=== PATIENT | female | born 1945 | race African-American/Black ===

== ENCOUNTER 2018-04-14 15:17 | Inpatient (IN) | payer OTHER ==
[~2018-04-14] VITALS: Ht 154.9 cm; Wt 63.5 kg
[~2018-04-14 15:17] MED LIST: ATOR20TA50 PO; CARB25TA3 PO; DIPH25TA PO; FURO20TA3 PO; GABA-339 PO; LISI10TA6 PO; METO-159 PO; MONT10TA34 PO; OMEP20TA PO
[2018-04-14] MEDS ORDERED: LEVOFLOXACIN 500MG 100 ML IV ONE (16:30)
[2018-04-14 16:37] LABS: Basophils # (auto) 0.1 uL; Basophils % (auto) 1.3 % (0.0-2.0); Eosinophils # (auto) 0 uL; Eosinophils % (auto) 0.4 % (0.0-7.0); Hematocrit 36.5 % (36.0-46.0); Hemoglobin 11.7 g/dL (12.2-16.2); Lymphocytes # (auto) 2.3 uL; Mean Corpuscular Hemoglobin 27.7 pg (28.0-32.0); Mean Corpuscular Hgb Conc. 32.1 g/dL (32.0-36.0); Mean Corpuscular Volume 86.4 fL (80.0-100.0); Monocytes # (auto) 0.5 uL; Monocytes % (auto) 8.8 % (0.0-12.0); Neutrophils # (auto) 2.6 uL; Neutrophils % (auto) 47.5 % (37.0-80.0); Nucleated Red Blood Cells % 0.1 %; Platelet Count (auto) 186 10^3/uL (140-450); Red Blood Cells 4.22 10^6/uL (4.0-5.20); Red Cell Distribution Width 12.7 % (11.8-14.3); White Blood Cell 5.4 10^3/uL (4.4-10.8)
[2018-04-14 16:39] LABS: Urine Bacteria NONE SEEN /hpf (None Seen); Urine Blood Negative /uL (Negative); Urine Specific Gravity 1.007 (1.001-1.035); Urine WBC 3 /hpf (0 - 5)
[2018-04-14 16:55] LABS: Albumin 3.4 g/dL (3.4-5.0); Calcium 8.7 mg/dL (8.5-10.1); Magnesium 2.1 mg/dL (1.6-2.6); Potassium 4.2 mmol/L (3.5-5.1)
[2018-04-14 16:59] LABS: BUN/Creatinine Ratio 11.1; Bilirubin, Total 0.4 mg/dL (0.2-1.0); Total Protein 8.1 g/dL (6.4-8.2)
[2018-04-14] MEDS ORDERED: FUROSEMIDE 40 MG/4 ML VIAL IV ONE (17:45)
[2018-04-14] MEDS ORDERED: DOCUSATE SOD 100 MG CAP PO PRN (19:00)
[2018-04-14] MEDS ORDERED: ONDANSETRON HCL 4 MG/2 ML VIAL IV PRN (19:00)
[2018-04-14] MEDS ORDERED: ACETAMINOPHEN 325 MG TAB PO PRN (19:00)
[2018-04-14] MEDS ORDERED: TEMAZEPAM 15 MG CAP PO PRN (19:00)
[2018-04-14] MEDS ORDERED: diphenhdrAMINE HCL 25 MG CAP PO PRN ×2 (19:00)
[2018-04-14] MEDS ORDERED: MORPHINE SULFATE 10 MG/ML INJ 1ML SDV IV PRN ×2 (19:00)
[2018-04-14] MEDS ORDERED: HYDROcodone-ACET 5/325MG TAB PO PRN (19:00)
[2018-04-14] MEDS ORDERED: NITROGLYCERIN 0.4 MG SL TAB SL PRN (19:00)
[2018-04-14] MEDS ORDERED: ENOXAPARIN SOD 40 MG/0.4 ML SYRINGE SC SCH (19:08)
[2018-04-14 19:36] VITALS: BP 153/89
[2018-04-14 22:00] VITALS: BP 131/63
[2018-04-14] MEDS ORDERED: MONTELUKAST SODIUM 10 MG TAB PO SCH (22:00)
[2018-04-14] MEDS ORDERED: ATORVASTATIN 20 MG TAB PO SCH (22:00)
[2018-04-14 23:00] VITALS: BP 131/63
[2018-04-14] MEDS: SODIUM CHLOR 0.9% PF (SALINE LOCK) 10ML VIAL/SYR IV SCH (23:04)
[2018-04-14] MEDS: GABAPENTIN 400 MG CAP PO SCH (23:04)
[2018-04-14] MEDS: CARBIDOPA W LEVODOPA 25/100mg TABLET PO SCH (23:04)
[2018-04-14] MEDS: METOPROLOL TARTRATE 50 MG TAB PO SCH (23:08)
[2018-04-15 05:00] VITALS: BP 134/62
[2018-04-15] MEDS: GABAPENTIN 400 MG CAP PO SCH (06:12)
[2018-04-15] MEDS: SODIUM CHLOR 0.9% PF (SALINE LOCK) 10ML VIAL/SYR IV SCH ×2 (06:12→14:16)
[2018-04-15 06:37] LABS: Potassium 3.7 mmol/L (3.5-5.1)
[2018-04-15 06:39] LABS: Basophils # (auto) 0 uL; Basophils % (auto) 0.4 % (0.0-2.0); Eosinophils # (auto) 0 uL; Eosinophils % (auto) 0.7 % (0.0-7.0); Hematocrit 35.7 % (36.0-46.0); Hemoglobin 11.8 g/dL (12.2-16.2); Lymphocytes # (auto) 2.5 uL; Lymphocytes % (auto) 46.9 % (10.0-50.0); Mean Corpuscular Hemoglobin 28.5 pg (28.0-32.0); Mean Corpuscular Volume 86.4 fL (80.0-100.0); Monocytes # (auto) 0.5 uL; Monocytes % (auto) 9.9 % (0.0-12.0); Neutrophils # (auto) 2.2 uL; Neutrophils % (auto) 42.1 % (37.0-80.0); Nucleated Red Blood Cells % 0.1 %; Platelet Count (auto) 174 10^3/uL (140-450); Red Blood Cells 4.13 10^6/uL (4.0-5.20); Red Cell Distribution Width 12.7 % (11.8-14.3); White Blood Cell 5.2 10^3/uL (4.4-10.8)
[2018-04-15] MEDS: ALBUTEROL SULF 2.5 MG/0.5ML(0.5%) NEB SOLN NEB SCH ×3 (06:45→12:03)
[2018-04-15 06:52] LABS: Albumin 3.4 g/dL (3.4-5.0); BUN/Creatinine Ratio 10.9; Bilirubin, Total 0.7 mg/dL (0.2-1.0); Calcium 8.9 mg/dL (8.5-10.1); Total Protein 7.9 g/dL (6.4-8.2)
[2018-04-15 08:00] VITALS: BP 112/59
[2018-04-15 09:00] VITALS: BP 112/59
[2018-04-15] MEDS: METOPROLOL TARTRATE 50 MG TAB PO SCH (09:30)
[2018-04-15] MEDS ORDERED: FUROSEMIDE 40 MG/4 ML VIAL IV SCH (10:00)
[2018-04-15] MEDS ORDERED: PANTOPRAZOLE 40 MG TAB PO SCH (10:00)
[2018-04-15] MEDS ORDERED: POTASSIUM CHLORIDE 8 MEQ TAB PO SCH (10:00)
[2018-04-15] MEDS ORDERED: MULTIPLE VITAMIN TAB PO SCH (10:00)
[2018-04-15] MEDS ORDERED: LISINOPRIL 10 MG TAB PO SCH (10:00)
[2018-04-15] MEDS ORDERED: ENOXAPARIN SOD 30 MG/0.3 ML SYRINGE SC SCH (10:00)
[2018-04-15] MEDS ORDERED: ASPirin-EC 81 mg tab PO SCH (10:00)
[2018-04-15] MEDS: CARBIDOPA W LEVODOPA 25/100mg TABLET PO SCH (10:00)
[2018-04-15] MEDS ORDERED: AMIODARONE HCL 200 MG TAB PO SCH (10:00)
[2018-04-15] MEDS ORDERED: POTASSIUM CHL 20 Meq TABLET PO ONE (10:30)
[2018-04-15 13:00] VITALS: BP 116/55
[2018-04-15] MEDS ORDERED: GABAPENTIN 400 MG CAP PO SCH (14:00)
[2018-04-15] MEDS ORDERED: CARBIDOPA W LEVODOPA 25/100mg TABLET PO SCH (14:00)
[2018-04-15] MEDS ORDERED: GABAPENTIN 300 MG CAP PO SCH (14:15)
[2018-04-15 17:00] VITALS: BP 139/68
== END 2018-04-15 18:20 | disposition home or self-care (01) | DRG 291 ==
LOC: ER 15:17 → TELE 19:07 → TELE-EAST 21:24
PROVIDERS: ADMIT Internal Medicine; ATTEND Family Medicine
DX: I13.0 Hypertensive heart and chronic kidney disease with heart failure and stage 1 through stage 4 chronic kidney disease, or unspecified chronic kidney disease (principal); I50.43 Acute on chronic combined systolic (congestive) and diastolic (congestive) heart failure; I48.92 Unspecified atrial flutter; D68.69 Other thrombophilia; E78.5 Hyperlipidemia, unspecified; G20 Parkinson's disease; I25.10 Atherosclerotic heart disease of native coronary artery without angina pectoris; I25.2 Old myocardial infarction; I48.0 Paroxysmal atrial fibrillation; N18.3 Chronic kidney disease, stage 3 (moderate); Z95.810 Presence of automatic (implantable) cardiac defibrillator; Z90.49 Acquired absence of other specified parts of digestive tract; Z98.51 Tubal ligation status; Z90.89 Acquired absence of other organs
CPT/HCPCS: 36415; 71045; 80053; 81001; 83605; 83735; 83880; 84484; 85025; 87040; 87081; 94640; 94761; 96365; 96372; 96375; G0378; J1956

== ENCOUNTER 2022-01-12 13:33 | Inpatient (IN) | payer OTHER ==
[~2022-01-12] VITALS: Ht 165.1 cm; Wt 50.5 kg
[~2022-01-12 13:33] MED LIST changes: +CARB-80 PO; -CARB25TA3 PO; +LISI-716 PO; -LISI10TA6 PO; +MONT-8 PO; -MONT10TA34 PO
[2022-01-12 14:47] LABS: Albumin 2.5 g/dL (3.4-5.0); BUN/Creatinine Ratio 10.9; Calcium 9.2 mg/dL (8.5-10.1); Magnesium 2.2 mg/dL (1.6-2.6); Potassium 4.8 mmol/L (3.5-5.1)
[2022-01-12 14:50] LABS: Bilirubin, Total 0.4 mg/dL (0.2-1.0); Total Protein 8.1 g/dL (6.4-8.2)
[2022-01-12 15:09] LABS: Hemoglobin 9.1 g/dL (12.2-16.2)
[2022-01-12 15:11] LABS: Hematocrit 29.6 % (36.0-46.0); Mean Corpuscular Hemoglobin 25.5 pg (28.0-32.0); Mean Corpuscular Hgb Conc. 30.6 g/dL (32.0-36.0); Mean Corpuscular Volume 83.2 fL (80.0-100.0); Red Blood Cells 3.56 10^6/uL (4.0-5.20); Red Cell Distribution Width 17.2 % (11.8-14.3); White Blood Cell 4.6 10^3/uL (4.4-10.8)
[2022-01-12 15:22] LABS: Band Neutrophils % (manual) 0; Blast Cells 0; Eosinophils % (manual) 0 (0-7); Metamyelocytes % 0; Myelocytes % 0; Promyelocytes % 0
[2022-01-12] MEDS ORDERED: HEPARIN DRIP/D5W 100UNITS/ML 250 ML IV SCH (16:45)
[2022-01-12] MEDS ORDERED: MORPHINE SULFATE INJ 2 MG/ml SYRG IV PRN (17:15)
[2022-01-12] MEDS ORDERED: NITROGLYCERIN 0.4 MG SL TAB SL PRN (17:15)
[2022-01-12] MEDS ORDERED: CLOPIDOGREL 300 MG TAB PO ONE (17:15)
[2022-01-12] MEDS ORDERED: HEPARIN SODIUM (PORCINE) 5000 UNITS/ML 1ML VIAL ONE (17:17)
[2022-01-12] MEDS: HEPARIN SODIUM (PORCINE) 5000 UNITS/ML 1ML VIAL IV ONE ×2 (18:49→18:59)
[2022-01-12 19:19] LABS: INR 1.13 (0.9-1.15); Partial Thromboplastin Time 30.4 sec (24.6-33.4)
[2022-01-12 20:31] LABS: Basophils % (manual) 1 (0.0-2.0); Lymphocytes % (manual) 23 (10.0-50.0); Monocytes % (manual) 10 (0-12); Reactive Lymphocytes 1
[2022-01-12 22:29] LABS: Urine Bacteria MOD /hpf (None Seen); Urine Blood 1+ /uL (Negative); Urine Budding Yeast MANY /hpf (None Seen); Urine Mucus FEW (None Seen); Urine Specific Gravity 1.021 (1.001-1.035); Urine WBC 975 /hpf (0 - 5); Urine WBC Clumps PRESENT /hpf (None Seen)
[2022-01-12] MEDS ORDERED: DOCUSATE SOD 100 MG CAP PO PRN (22:30)
[2022-01-12] MEDS ORDERED: ACETAMINOPHEN 325 MG TAB PO PRN (22:30)
[2022-01-12] MEDS ORDERED: ONDANSETRON HCL 4 MG/2 ML VIAL IV PRN (22:30)
[2022-01-13] VITALS (22 sets, daily range): BP systolic 129–168; BP diastolic 50–87
[2022-01-13 01:57] LABS: INR 1.17 (0.9-1.15)
[2022-01-13 02:07] LABS: Partial Thromboplastin Time 71.7 sec (24.6-33.4)
[2022-01-13 04:54] LABS: Basophils # (auto) 0 10 ^3/uL (0-0.2); Basophils % (auto) 0.8 % (0.0-2.0); Eosinophils # (auto) 0 10 ^3/uL (0-0.8); Eosinophils % (auto) 0.3 % (0.0-7.0); Hematocrit 28.1 % (36.0-46.0); Hemoglobin 8.5 g/dL (12.2-16.2); Lymphocytes # (auto) 1.4 10 ^3/uL (0.4-5.4); Lymphocytes % (auto) 33.3 % (10.0-50.0); Mean Corpuscular Hemoglobin 25.3 pg (28.0-32.0); Mean Corpuscular Hgb Conc. 30.3 g/dL (32.0-36.0); Mean Corpuscular Volume 83.5 fL (80.0-100.0); Monocytes # (auto) 0.4 10 ^3/uL (0-1.3); Monocytes % (auto) 9.2 % (0.0-12.0); Neutrophils # (auto) 2.3 10 ^3/uL (1.6-8.6); Neutrophils % (auto) 56.4 % (37.0-80.0); Red Blood Cells 3.37 10^6/uL (4.0-5.20); White Blood Cell 4.1 10^3/uL (4.4-10.8)
[2022-01-13 05:06] LABS: BUN/Creatinine Ratio 12.8; Calcium 9.1 mg/dL (8.5-10.1); Magnesium 2.1 mg/dL (1.6-2.6); Potassium 3.9 mmol/L (3.5-5.1)
[2022-01-13 05:18] LABS: INR 1.17 (0.9-1.15)
[2022-01-13 05:33] LABS: Partial Thromboplastin Time 82.2 sec (24.6-33.4)
[2022-01-13 10:57] LABS: INR 1.13 (0.9-1.15); Partial Thromboplastin Time 48.1 sec (24.6-33.4)
[2022-01-13] MEDS ORDERED: HEPARIN DRIP/D5W 100UNITS/ML 250 ML IV SCH (12:00)
[2022-01-13] MEDS ORDERED: CLOPIDOGREL BISULFATE 75 MG TAB PO ONE (12:15)
[2022-01-13] MEDS ORDERED: hydrALAZINE HCL 20 MG/ML VL IV PRN (12:30)
[2022-01-13] MEDS: METOPROLOL TARTRATE 25 MG TAB PO SCH ×2 (12:52→22:14)
[2022-01-13] MEDS: ATORVASTATIN 20 MG TAB PO SCH (22:14)
[2022-01-13] MEDS: ENOXAPARIN SOD 60 MG/0.6 ML SYRINGE SC SCH (22:15)
[2022-01-14] VITALS (9 sets, daily range): BP systolic 124–151; BP diastolic 54–74
[2022-01-14] MEDS ORDERED: cefTRIAXone 1GM/50ML D5W 50 ML IV ONE (11:00)
[2022-01-14] MEDS: METOPROLOL TARTRATE 25 MG TAB PO SCH ×2 (11:14→22:53)
[2022-01-14] MEDS: CLOPIDOGREL BISULFATE 75 MG TAB PO SCH (11:15)
[2022-01-14] MEDS: ENOXAPARIN SOD 60 MG/0.6 ML SYRINGE SC SCH (11:15)
[2022-01-14] MEDS ORDERED: levoFLOXacin 500MG 100 ML IV ONE (12:30)
[2022-01-14 22:02] LABS: Calcium 9.5 mg/dL (8.5-10.1); Potassium 4.3 mmol/L (3.5-5.1)
[2022-01-14 22:04] LABS: BUN/Creatinine Ratio 11.6
[2022-01-14] MEDS: ATORVASTATIN 20 MG TAB PO SCH (22:33)
[2022-01-15 04:47] VITALS: BP 135/70
[2022-01-15 08:21] VITALS: BP 150/81
[2022-01-15] MEDS ORDERED: cefTRIAXone 1GM/50ML D5W 50 ML IV SCH (09:00)
[2022-01-15] MEDS ORDERED: levoFLOXacin 500MG 100 ML IV SCH (10:00)
[2022-01-15] MEDS: levoFLOXacin 250MG 50 ML IV SCH (10:49)
[2022-01-15] MEDS: CLOPIDOGREL BISULFATE 75 MG TAB PO SCH (10:49)
[2022-01-15] MEDS: METOPROLOL TARTRATE 25 MG TAB PO SCH ×2 (10:54→21:30)
[2022-01-15 12:20] VITALS: BP 147/70
[2022-01-15 15:29] VITALS: BP 140/70
[2022-01-15 21:29] VITALS: BP 156/65
[2022-01-15] MEDS: ATORVASTATIN 20 MG TAB PO SCH (21:29)
[2022-01-15] MEDS: dilTIAZem 120MG ER CAP PO ONE ×2 (22:56→23:08)
[2022-01-16 05:00] VITALS: BP 139/82
[2022-01-16 08:52] VITALS: BP 147/76
[2022-01-16] MEDS: CLOPIDOGREL BISULFATE 75 MG TAB PO SCH (10:00)
[2022-01-16] MEDS ORDERED: dilTIAZem 120MG ER CAP PO SCH (10:00)
[2022-01-16] MEDS: levoFLOXacin 250MG 50 ML IV SCH (10:29)
[2022-01-16 12:32] VITALS: BP 153/91
[2022-01-16] MEDS ORDERED: FLUCONAZOLE 100 MG TAB PO ONE (14:45)
[2022-01-16 14:55] VITALS: BP 147/76
== END 2022-01-16 16:35 | disposition home or self-care (01) | DRG 280 ==
LOC: ER 13:33 → EDBD 13:33 → TELE 22:30 → DOU IN ICU 23:59 → TELE-WESTW 01-14 14:02
PROVIDERS: ADMIT Hospitalist; ATTEND Internal Medicine
DX: I21.4 Non-ST elevation (NSTEMI) myocardial infarction (principal); I50.33 Acute on chronic diastolic (congestive) heart failure; G93.40 Encephalopathy, unspecified; N39.0 Urinary tract infection, site not specified; E78.5 Hyperlipidemia, unspecified; G20 Parkinson's disease; I11.0 Hypertensive heart disease with heart failure; I27.20 Pulmonary hypertension, unspecified; Z96.651 Presence of right artificial knee joint; K21.9 Gastro-esophageal reflux disease without esophagitis; I45.9 Conduction disorder, unspecified; I48.0 Paroxysmal atrial fibrillation; I25.10 Atherosclerotic heart disease of native coronary artery without angina pectoris; Z88.6 Allergy status to analgesic agent; Z88.0 Allergy status to penicillin; Z88.8 Allergy status to other drugs, medicaments and biological substances; Z79.01 Long term (current) use of anticoagulants; Z82.49 Family history of ischemic heart disease and other diseases of the circulatory system; Z86.73 Personal history of transient ischemic attack (TIA), and cerebral infarction without residual deficits; Z87.440 Personal history of urinary (tract) infections; Z95.810 Presence of automatic (implantable) cardiac defibrillator; Z90.49 Acquired absence of other specified parts of digestive tract
CPT/HCPCS: 36415; 70450; 71045; 80048; 80053; 81001; 82962; 83735; 83880; 84484; 85007; 85025; 85027; 85610; 85730; 86850; 86900; 86901; 87081; 87086; 87088; 87186; 93005; 93306; 93886; 93970; 96365; 96376; 99291; G0378; J0696; J1956

== ENCOUNTER 2022-01-19 16:52 | Inpatient (IN) | payer OTHER ==
[~2022-01-19] VITALS: Ht 152.4 cm; Wt 45.7 kg
[2022-01-19] MEDS ORDERED: SODIUM CHLORIDE 0.9% 1,000 ML IV ONE (18:30)
[2022-01-19] MEDS ORDERED: ONDANSETRON ODT 4 MG TAB PO ONE (18:30)
[2022-01-19 19:47] LABS: Basophils # (auto) 0 10 ^3/uL (0-0.2); Hemoglobin 8.8 g/dL (12.2-16.2); Nucleated Red Blood Cells % 0.1 %
[2022-01-19 19:50] LABS: Basophils % (auto) 0.5 % (0.0-2.0); Eosinophils # (auto) 0 10 ^3/uL (0-0.8); Eosinophils % (auto) 0.1 % (0.0-7.0); Hematocrit 29.5 % (36.0-46.0); Lymphocytes # (auto) 0.9 10 ^3/uL (0.4-5.4); Lymphocytes % (auto) 19.5 % (10.0-50.0); Mean Corpuscular Hemoglobin 25.5 pg (28.0-32.0); Mean Corpuscular Volume 84.9 fL (80.0-100.0); Monocytes # (auto) 0.3 10 ^3/uL (0-1.3); Monocytes % (auto) 6.9 % (0.0-12.0); Neutrophils # (auto) 3.3 10 ^3/uL (1.6-8.6); Red Blood Cells 3.47 10^6/uL (4.0-5.20); Red Cell Distribution Width 17.3 % (11.8-14.3); White Blood Cell 4.5 10^3/uL (4.4-10.8)
[2022-01-19 20:00] LABS: Albumin 2.5 g/dL (3.4-5.0); BUN/Creatinine Ratio 13.5; Calcium 8.9 mg/dL (8.5-10.1); Potassium 3.6 mmol/L (3.5-5.1)
[2022-01-19 20:03] LABS: Bilirubin, Total 0.5 mg/dL (0.2-1.0); Total Protein 7.5 g/dL (6.4-8.2)
[2022-01-19] MEDS ORDERED: IOHEXOL 350 MG/ML 100ML IJ ONE (20:03)
[2022-01-19] MEDS ORDERED: ACETAMINOPHEN 325 MG TAB PO PRN (22:15)
[2022-01-19] MEDS ORDERED: DOCUSATE SOD 100 MG CAP PO PRN (22:15)
[2022-01-19] MEDS ORDERED: HYDROcodone-ACET 5/325MG TAB PO PRN (22:15)
[2022-01-19] MEDS ORDERED: ONDANSETRON HCL 4 MG/2 ML VIAL IV PRN (22:15)
[2022-01-19] MEDS ORDERED: ALBUMIN 25% 100 ML IV ONE (22:15)
[2022-01-19] MEDS ORDERED: MORPHINE SULFATE INJ 2 MG/ml SYRG IV PRN (22:45)
[2022-01-19] MEDS ORDERED: NITROGLYCERIN 0.4 MG SL TAB SL PRN (22:45)
[2022-01-20] MEDS: SODIUM CHLOR 0.9% PF (SALINE LOCK) 10ML VIAL/SYR IV SCH ×3 (06:00→22:14)
[2022-01-20 07:15] LABS: Basophils # (auto) 0 10 ^3/uL (0-0.2); Basophils % (auto) 0.8 % (0.0-2.0); Eosinophils # (auto) 0 10 ^3/uL (0-0.8); Hemoglobin 8.4 g/dL (12.2-16.2); Lymphocytes # (auto) 1.3 10 ^3/uL (0.4-5.4); Mean Corpuscular Volume 82.9 fL (80.0-100.0); Monocytes # (auto) 0.3 10 ^3/uL (0-1.3)
[2022-01-20 07:19] LABS: Eosinophils % (auto) 0.6 % (0.0-7.0); Hematocrit 27.4 % (36.0-46.0); Lymphocytes % (auto) 27.6 % (10.0-50.0); Mean Corpuscular Hemoglobin 25.4 pg (28.0-32.0); Mean Corpuscular Hgb Conc. 30.6 g/dL (32.0-36.0); Monocytes % (auto) 6.4 % (0.0-12.0); Neutrophils % (auto) 64.6 % (37.0-80.0); Red Blood Cells 3.31 10^6/uL (4.0-5.20); Red Cell Distribution Width 17.3 % (11.8-14.3); White Blood Cell 4.6 10^3/uL (4.4-10.8)
[2022-01-20 07:39] LABS: Albumin 2.8 g/dL (3.4-5.0); Calcium 8.8 mg/dL (8.5-10.1); Potassium 3.6 mmol/L (3.5-5.1)
[2022-01-20 07:45] LABS: Bilirubin, Total 0.5 mg/dL (0.2-1.0); Total Protein 7.5 g/dL (6.4-8.2)
[2022-01-20] MEDS: HEPARIN SODIUM (PORCINE) 5000 UNITS/ML 1ML VIAL SC SCH ×2 (10:00→10:47)
[2022-01-20] MEDS: FAMOTIDINE (10MG/ML) 2ML VL IV SCH ×2 (10:40→21:54)
[2022-01-20 22:00] VITALS: BP 148/54
[2022-01-20] MEDS: METOPROLOL TARTRATE 25 MG TAB PO SCH (22:12)
[2022-01-21 05:26] VITALS: BP 142/70
[2022-01-21] MEDS: SODIUM CHLOR 0.9% PF (SALINE LOCK) 10ML VIAL/SYR IV SCH ×3 (06:45→22:08)
[2022-01-21 09:00] VITALS: BP 144/84
[2022-01-21] MEDS: FAMOTIDINE (10MG/ML) 2ML VL IV SCH ×2 (10:09→22:08)
[2022-01-21] MEDS: METOPROLOL TARTRATE 25 MG TAB PO SCH ×2 (10:10→21:39)
[2022-01-21 10:48] LABS: INR 1.05 (0.9-1.15); Partial Thromboplastin Time 27.6 sec (24.6-33.4)
[2022-01-21 13:00] VITALS: BP 152/65
[2022-01-21 17:00] VITALS: BP 121/70
[2022-01-21 22:00] VITALS: BP 158/82
[2022-01-22 00:52] VITALS: BP 156/87
[2022-01-22 05:00] VITALS: BP 142/74
[2022-01-22] MEDS: SODIUM CHLOR 0.9% PF (SALINE LOCK) 10ML VIAL/SYR IV SCH ×3 (07:07→22:51)
[2022-01-22 09:00] VITALS: BP 141/61
[2022-01-22] MEDS: FAMOTIDINE (10MG/ML) 2ML VL IV SCH ×2 (10:31→22:51)
[2022-01-22] MEDS: METOPROLOL TARTRATE 25 MG TAB PO SCH ×2 (10:32→22:51)
[2022-01-22 13:00] VITALS: BP 153/69
[2022-01-22 16:53] VITALS: BP 168/72
[2022-01-22 22:00] VITALS: BP 148/62
[2022-01-23 05:00] VITALS: BP 152/96
[2022-01-23] MEDS: SODIUM CHLOR 0.9% PF (SALINE LOCK) 10ML VIAL/SYR IV SCH ×2 (06:00→14:00)
[2022-01-23 06:16] LABS: Hematocrit 30.1 % (36.0-46.0); Hemoglobin 9.5 g/dL (12.2-16.2); Mean Corpuscular Hemoglobin 25.9 pg (28.0-32.0); Mean Corpuscular Hgb Conc. 31.6 g/dL (32.0-36.0); Mean Corpuscular Volume 81.8 fL (80.0-100.0); Red Blood Cells 3.68 10^6/uL (4.0-5.20); Red Cell Distribution Width 16.9 % (11.8-14.3); White Blood Cell 3.9 10^3/uL (4.4-10.8)
[2022-01-23 06:28] LABS: INR 1.03 (0.9-1.15); Partial Thromboplastin Time 22.2 sec (24.6-33.4)
[2022-01-23 06:31] LABS: Band Neutrophils % (manual) 0; Basophils % (manual) 0 (0.0-2.0); Blast Cells 0; Metamyelocytes % 0; Myelocytes % 0; Promyelocytes % 0; Reactive Lymphocytes 0
[2022-01-23 07:28] LABS: Eosinophils % (manual) 1 (0-7); Lymphocytes % (manual) 50 (10.0-50.0); Monocytes % (manual) 3 (0-12)
[2022-01-23] MEDS: FAMOTIDINE (10MG/ML) 2ML VL IV SCH (08:52)
[2022-01-23] MEDS: METOPROLOL TARTRATE 25 MG TAB PO SCH (08:53)
[2022-01-23 09:00] VITALS: BP 164/67
[2022-01-23 13:00] VITALS: BP 133/64
[2022-01-23 17:09] VITALS: BP 157/66
[2022-01-23 18:50] VITALS: BP 149/64
== END 2022-01-23 19:25 | disposition home or self-care (01) | DRG 565 ==
LOC: ER 16:52 → EDBD 16:52 → TELE 22:40 → TELE-WESTW 01-20 17:11
PROVIDERS: ADMIT Nurse Practitioner Family; ATTEND Hospitalist
PROC: 0S9C3ZX Drainage of Right Knee Joint, Percutaneous Approach, Diagnostic (ICD-10-PCS; principal; 2022-01-23)
DX: M25.461 Effusion, right knee (principal); E44.0 Moderate protein-calorie malnutrition; E78.5 Hyperlipidemia, unspecified; I11.0 Hypertensive heart disease with heart failure; I95.2 Hypotension due to drugs; I48.91 Unspecified atrial fibrillation; I50.9 Heart failure, unspecified; T50.905A Adverse effect of unspecified drugs, medicaments and biological substances, initial encounter; Z20.822 Contact with and (suspected) exposure to COVID-19; Z96.651 Presence of right artificial knee joint; M25.561 Pain in right knee; I25.10 Atherosclerotic heart disease of native coronary artery without angina pectoris; E88.09 Other disorders of plasma-protein metabolism, not elsewhere classified; I25.2 Old myocardial infarction; Z82.49 Family history of ischemic heart disease and other diseases of the circulatory system; Z88.6 Allergy status to analgesic agent; Z88.0 Allergy status to penicillin; Z88.8 Allergy status to other drugs, medicaments and biological substances; Y92.89 Other specified places as the place of occurrence of the external cause
CPT/HCPCS: 36415; 70450; 71045; 73562; 73706; 76942; 80053; 83880; 84484; 85007; 85025; 85027; 85610; 85652; 85730; 86141; 87081; 87205; 93005; 96361; 96365; 96375; 97110; 97116; 97530; 99291; C1729; G0378; J3490; P9047; Q0162

== ENCOUNTER 2022-09-05 01:00 | Inpatient (IN) | payer OTHER ==
[~2022-09-05] VITALS: Ht 162.6 cm; Wt 53.1 kg
[2022-09-05 02:02] LABS: Basophils # (auto) 0 10 ^3/uL (0-0.2); Basophils % (auto) 0.6 % (0.0-2.0); Eosinophils # (auto) 0 10 ^3/uL (0-0.8); Eosinophils % (auto) 0.3 % (0.0-7.0); Hematocrit 38.5 % (36.0-46.0); Hemoglobin 12.4 g/dL (12.2-16.2); Lymphocytes # (auto) 1.2 10 ^3/uL (0.4-5.4); Lymphocytes % (auto) 32.2 % (10.0-50.0); Mean Corpuscular Hemoglobin 27.8 pg (28.0-32.0); Mean Corpuscular Hgb Conc. 32.1 g/dL (32.0-36.0); Mean Corpuscular Volume 86.3 fL (80.0-100.0); Monocytes # (auto) 0.3 10 ^3/uL (0-1.3); Monocytes % (auto) 8.4 % (0.0-12.0); Neutrophils # (auto) 2.1 10 ^3/uL (1.6-8.6); Neutrophils % (auto) 58.5 % (37.0-80.0); Nucleated Red Blood Cells % 0.1 %; Red Blood Cells 4.46 10^6/uL (4.0-5.20); Red Cell Distribution Width 13.1 % (11.8-14.3); White Blood Cell 3.6 10^3/uL (4.4-10.8)
[2022-09-05 02:14] LABS: Albumin 3.3 g/dL (3.4-5.0); Calcium 9.6 mg/dL (8.5-10.1); Magnesium 2.2 mg/dL (1.6-2.6); Potassium 3.7 mmol/L (3.5-5.1)
[2022-09-05 02:17] LABS: BUN/Creatinine Ratio 18.5 (10.0-20.0); Bilirubin, Total 0.3 mg/dL (0.2-1.0); Total Protein 8.6 g/dL (6.4-8.2)
[2022-09-05 02:25] LABS: INR 0.98 (0.9-1.15); Partial Thromboplastin Time 29.1 sec (24.6-33.4)
[2022-09-05] MEDS: dilTIAZem 120MG ER CAP PO SCH (10:29)
[2022-09-05] MEDS ORDERED: NITROGLYCERIN 0.4 MG SL TAB SL PRN (13:30)
[2022-09-05] MEDS ORDERED: ONDANSETRON HCL 4 MG/2 ML VIAL IV PRN (13:30)
[2022-09-05] MEDS ORDERED: MORPHINE SULFATE INJ 2 MG/ml SYRG IV PRN ×2 (13:30)
[2022-09-05] MEDS: SODIUM CHLORIDE 0.9% 1,000 ML IV SCH (14:21)
[2022-09-05] MEDS ORDERED: LISINOPRIL 20 MG TAB PO ONE (15:00)
[2022-09-05] MEDS ORDERED: CLOPIDOGREL BISULFATE 75 MG TAB PO ONE (15:00)
[2022-09-05] MEDS ORDERED: HEPARIN SODIUM (PORCINE) 5000 UNITS/ML 1ML VIAL IV ONE (15:30)
[2022-09-05] MEDS ORDERED: HEPARIN DRIP/D5W 100UNITS/ML 250 ML IV SCH ×2 (15:30→23:30)
[2022-09-05 17:08] LABS: Cholesterol 156 mg/dL (< 200)
[2022-09-05 17:11] LABS: HDL Cholesterol 47 mg/dL (40-59); LDL Cholesterol 89 mg/dL (< 100); Triglycerides 151 mg/dL (< 150)
[2022-09-05 20:15] LABS: INR 1.05 (0.9-1.15)
[2022-09-05 20:27] LABS: Partial Thromboplastin Time 123.1 sec (24.6-33.4)
[2022-09-05 21:42] LABS: Urine Bacteria NONE SEEN /hpf (None Seen); Urine Blood Negative /uL (Negative); Urine Specific Gravity 1.013 (1.001-1.035); Urine WBC 2 /hpf (0 - 5)
[2022-09-05 21:44] LABS: INR 1.03 (0.9-1.15)
[2022-09-05] MEDS: ATORVASTATIN 20 MG TAB PO SCH (22:08)
[2022-09-05 22:45] VITALS: BP 143/67
[2022-09-05 22:52] LABS: Partial Thromboplastin Time 137.4 sec (24.6-33.4)
[2022-09-05 23:30] VITALS: BP 134/66
[2022-09-05 23:45] VITALS: BP 130/68
[2022-09-06] VITALS (42 sets, daily range): BP systolic 131–161; BP diastolic 60–94
[2022-09-06 05:36] LABS: Basophils # (auto) 0 10 ^3/uL (0-0.2); Basophils % (auto) 0.9 % (0.0-2.0); Eosinophils # (auto) 0 10 ^3/uL (0-0.8); Eosinophils % (auto) 0.7 % (0.0-7.0); Hematocrit 34.9 % (36.0-46.0); Hemoglobin 11.4 g/dL (12.2-16.2); Lymphocytes # (auto) 1.9 10 ^3/uL (0.4-5.4); Lymphocytes % (auto) 44.5 % (10.0-50.0); Mean Corpuscular Hemoglobin 27.6 pg (28.0-32.0); Mean Corpuscular Hgb Conc. 32.6 g/dL (32.0-36.0); Mean Corpuscular Volume 84.7 fL (80.0-100.0); Monocytes # (auto) 0.4 10 ^3/uL (0-1.3); Monocytes % (auto) 10.5 % (0.0-12.0); Neutrophils # (auto) 1.8 10 ^3/uL (1.6-8.6); Neutrophils % (auto) 43.4 % (37.0-80.0); Nucleated Red Blood Cells % 0.4 %; Red Blood Cells 4.12 10^6/uL (4.0-5.20); White Blood Cell 4.2 10^3/uL (4.4-10.8)
[2022-09-06] MEDS: SODIUM CHLORIDE 0.9% 1,000 ML IV SCH ×2 (06:10→16:19)
[2022-09-06 07:07] LABS: BUN/Creatinine Ratio 19.8 (10.0-20.0); GFR African American 82 mL/min; GFR Non-African American 68 mL/min
[2022-09-06 07:11] LABS: Anion Gap 10 (5-15); Carbon Dioxide 20 mmol/L (21-32); Chloride 110 mmol/L (98-107); Potassium 3.4 mmol/L (3.5-5.1); Sodium 140 mmol/L (136-145)
[2022-09-06 07:12] LABS: Blood Urea Nitrogen 17 mg/dL (7-18); Glucose 90 mg/dL (74-106)
[2022-09-06 07:16] LABS: INR 1.03 (0.9-1.15); Partial Thromboplastin Time 62.9 sec (24.6-33.4)
[2022-09-06] MEDS ORDERED: LIDOCAINE 2%HCL (LOCAL ANESTH.) INJ 20ML MDV ONE (09:41)
[2022-09-06] MEDS ORDERED: IODIXANOL 320MG/ML 100ML BTL IV ONE (09:42)
[2022-09-06] MEDS: FAMOTIDINE 20 MG TAB PO SCH (10:00)
[2022-09-06] MEDS: CLOPIDOGREL BISULFATE 75 MG TAB PO SCH (10:00)
[2022-09-06] MEDS: LISINOPRIL 20 MG TAB PO SCH (10:00)
[2022-09-06] MEDS: dilTIAZem 120MG ER CAP PO SCH (10:00)
[2022-09-06] MEDS ORDERED: HEPARIN SODIUM (PORCINE) 5000 UNITS/ML 1ML VIAL ONE (10:09)
[2022-09-06] MEDS ORDERED: VERAPAMIL 2.5MG/ML INJ 2ML VIAL IV ONE (10:09)
[2022-09-06] MEDS ORDERED: fentaNYL CITRATE 100 MCG/2 ML VL ONE (10:10)
[2022-09-06] MEDS ORDERED: MIDAZOLAM HCL 2MG/2ML 2ml VIAL (1mg/ml) ONE (10:10)
[2022-09-06] MEDS: ATORVASTATIN 20 MG TAB PO SCH (22:28)
[2022-09-07] VITALS (11 sets, daily range): BP systolic 140–169; BP diastolic 67–88
[2022-09-07] MEDS: SODIUM CHLORIDE 0.9% 1,000 ML IV SCH (03:56)
[2022-09-07 04:58] LABS: Basophils # (auto) 0 10 ^3/uL (0-0.2); Basophils % (auto) 0.6 % (0.0-2.0); Eosinophils # (auto) 0 10 ^3/uL (0-0.8); Eosinophils % (auto) 0.9 % (0.0-7.0); Hematocrit 34.7 % (36.0-46.0); Hemoglobin 11.3 g/dL (12.2-16.2); Lymphocytes # (auto) 1.6 10 ^3/uL (0.4-5.4); Mean Corpuscular Hemoglobin 27.9 pg (28.0-32.0); Mean Corpuscular Hgb Conc. 32.5 g/dL (32.0-36.0); Mean Corpuscular Volume 85.7 fL (80.0-100.0); Monocytes # (auto) 0.4 10 ^3/uL (0-1.3); Monocytes % (auto) 9.2 % (0.0-12.0); Neutrophils # (auto) 1.9 10 ^3/uL (1.6-8.6); Neutrophils % (auto) 48.3 % (37.0-80.0); Red Blood Cells 4.05 10^6/uL (4.0-5.20); Red Cell Distribution Width 13.1 % (11.8-14.3); White Blood Cell 3.8 10^3/uL (4.4-10.8)
[2022-09-07 05:18] LABS: Calcium 9.5 mg/dL (8.5-10.1); Potassium 3.5 mmol/L (3.5-5.1)
[2022-09-07 05:21] LABS: BUN/Creatinine Ratio 15.4 (10.0-20.0)
[2022-09-07] MEDS ORDERED: AMLO-489 PO (09:40)
[2022-09-07] MEDS: dilTIAZem 120MG ER CAP PO SCH (09:41)
[2022-09-07] MEDS: LISINOPRIL 20 MG TAB PO SCH (09:41)
[2022-09-07] MEDS ORDERED: amLODIPine BESYLATE 5 MG TAB PO ONE (10:15)
[2022-09-07] MEDS ORDERED: CARBIDOPA W LEVODOPA CR 25/100mg TABLET PO ONE (10:15)
[2022-09-07] MEDS ORDERED: GABAPENTIN 300 MG CAP PO ONE (10:15)
[2022-09-07] MEDS: CLOPIDOGREL BISULFATE 75 MG TAB PO SCH (10:27)
[2022-09-07] MEDS: FAMOTIDINE 20 MG TAB PO SCH (10:27)
[2022-09-07] MEDS ORDERED: ATOR20TA50 PO (11:55)
[2022-09-07] MEDS ORDERED: DILT120C12 PO (11:55)
[2022-09-07] MEDS ORDERED: CLOP75TA70 PO (11:55)
[2022-09-08] MEDS ORDERED: amLODIPine BESYLATE 5 MG TAB PO SCH (10:00)
== END 2022-09-07 15:00 | disposition home or self-care (01) | DRG 281 ==
LOC: ER 01:00 → EDBD 01:00 → TELE 13:27 → DOU IN ICU 22:45
PROVIDERS: ADMIT Hospitalist; ATTEND Hospitalist
PROC: 4A023N7 Measurement of Cardiac Sampling and Pressure, Left Heart, Percutaneous Approach (ICD-10-PCS; principal; 2022-09-06)
PROC: B211YZZ Fluoroscopy of Multiple Coronary Arteries using Other Contrast (ICD-10-PCS; 2022-09-06)
PROC: B215YZZ Fluoroscopy of Left Heart using Other Contrast (ICD-10-PCS; 2022-09-06)
DX: I21.4 Non-ST elevation (NSTEMI) myocardial infarction (principal); I47.1 Supraventricular tachycardia; I11.0 Hypertensive heart disease with heart failure; I25.10 Atherosclerotic heart disease of native coronary artery without angina pectoris; I45.9 Conduction disorder, unspecified; I48.91 Unspecified atrial fibrillation; I50.9 Heart failure, unspecified; I08.0 Rheumatic disorders of both mitral and aortic valves; Z86.73 Personal history of transient ischemic attack (TIA), and cerebral infarction without residual deficits; Z88.0 Allergy status to penicillin; Z88.6 Allergy status to analgesic agent; Z88.8 Allergy status to other drugs, medicaments and biological substances; Z95.0 Presence of cardiac pacemaker; Z79.899 Other long term (current) drug therapy; Z82.49 Family history of ischemic heart disease and other diseases of the circulatory system
CPT/HCPCS: 36415; 71045; 80048; 80053; 80061; 81001; 83036; 83735; 83880; 84443; 84484; 85025; 85610; 85730; 86850; 86900; 86901; 87081; 93005; 93306; 96361; 96365; 96375; 97163; 99152; 99291; G0378; J2250; Q9967

== ENCOUNTER 2023-06-26 17:34 | Inpatient (IN) | payer OTHER ==
[~2023-06-26] VITALS: Ht 154.9 cm; Wt 55.3 kg
[~2023-06-26 17:34] MED LIST changes: +CARB-118 PO; -CARB-80 PO; +CLOP75TA70 PO; +DILT120C12 PO; -FURO20TA3 PO; -LISI-716 PO; -METO-159 PO; -MONT-8 PO
[2023-06-26 18:02] VITALS: PULSE 88; RESP 15; O2SAT 95
[2023-06-26 18:29] LABS: Basophils # (auto) 0 10 ^3/uL (0-0.2); Basophils % (auto) 1.3 % (0.0-2.0); Eosinophils # (auto) 0 10 ^3/uL (0-0.8); Eosinophils % (auto) 0.7 % (0.0-7.0); Hematocrit 37.6 % (36.0-46.0); Lymphocytes # (auto) 1.8 10 ^3/uL (0.4-5.4); Lymphocytes % (auto) 48.9 % (10.0-50.0); Mean Corpuscular Hemoglobin 27.9 pg (28.0-32.0); Mean Corpuscular Hgb Conc. 31.9 g/dL (32.0-36.0); Mean Corpuscular Volume 87.4 fL (80.0-100.0); Monocytes # (auto) 0.3 10 ^3/uL (0-1.3); Monocytes % (auto) 8.8 % (0.0-12.0); Neutrophils # (auto) 1.5 10 ^3/uL (1.6-8.6); Neutrophils % (auto) 40.3 % (37.0-80.0); Nucleated Red Blood Cells % 0.3 %; Red Blood Cells 4.31 10^6/uL (4.0-5.20); White Blood Cell 3.6 10^3/uL (4.4-10.8)
[2023-06-26] MEDS: dilTIAZem 25 MG/5 ML VIAL IV ONE (18:35)
[2023-06-26 18:39] LABS: Alanine Aminotransferase 11 U/L (7-40); Albumin 3.8 g/dL (3.2-4.8); Alkaline Phosphatase 157 U/L (46-116); Anion Gap 8 (5-15); Aspartate Aminotransferase 40 U/L (13-40); BUN/Creatinine Ratio 13.5 (10.0-20.0); Blood Urea Nitrogen 17 mg/dL (9-23); Carbon Dioxide 25 mmol/L (20-30); Chloride 109 mmol/L (98-107); Glucose 134 mg/dL (74-106); Magnesium 1.9 mg/dL (1.6-2.6); Potassium 3.4 mmol/L (3.5-5.1); Sodium 142 mmol/L (136-145)
[2023-06-26 18:40] LABS: Bilirubin, Total 0.2 mg/dL (0.2-1.0); Total Protein 7.5 g/dL (5.7-8.2)
[2023-06-26 19:30] VITALS: PULSE 98; RESP 16; O2SAT 94
[2023-06-26] MEDS ORDERED: METOPROLOL TARTRATE 1MG/1ML-5ML VIAL IV PRN (19:45)
[2023-06-26] MEDS: dilTIAZem 125mg/125ml BAG KIT 125 ML IV ONE (20:27)
[2023-06-26] MEDS: METOPROLOL TARTRATE 25 MG TAB PO SCH (21:15)
[2023-06-26] MEDS: POTASSIUM CHL 20 Meq TABLET PO ONE (21:16)
[2023-06-26] MEDS ORDERED: ONDANSETRON HCL 4 MG/2 ML VIAL IV PRN (21:45)
[2023-06-26] MEDS ORDERED: ACETAMINOPHEN 325 MG TAB PO PRN (21:45)
[2023-06-27 08:00] VITALS: PULSE 60; RESP 14; TEMP 97.5; O2SAT 94
[2023-06-27] MEDS ORDERED: MET25T PO (08:50)
[2023-06-27] MEDS ORDERED: APIX2.5T PO (08:50)
[2023-06-27] MEDS ORDERED: DILT60TA2 GT (08:50)
[2023-06-27] MEDS ORDERED: AMIO200T33 PO (08:50)
[2023-06-27] MEDS: APIXABAN 2.5 MG TAB PO SCH (12:50)
[2023-06-27] MEDS: AMIODARONE HCL 200 MG TAB PO SCH (12:51)
[2023-06-27] MEDS: dilTIAZem HCL 60 MG TAB PO SCH (16:06)
[2023-06-27 18:00] VITALS: BP 149/72; PULSE 75; RESP 14; O2SAT 98
== END 2023-06-27 18:59 | disposition home health service (06) | DRG 309 ==
LOC: EDBD 17:34 → ER 17:34 → TELE 21:43 → TELE-WESTW 21:43 → TELE 21:44 → UNDODEPER 06-27 18:04
PROVIDERS: ADMIT Internal Medicine; ATTEND Internal Medicine
PROC: 4B02XSZ Measurement of Cardiac Pacemaker, External Approach (ICD-10-PCS; principal; 2023-06-27)
DX: I48.0 Paroxysmal atrial fibrillation (principal); I50.32 Chronic diastolic (congestive) heart failure; I42.2 Other hypertrophic cardiomyopathy; E78.5 Hyperlipidemia, unspecified; I11.0 Hypertensive heart disease with heart failure; K21.9 Gastro-esophageal reflux disease without esophagitis; I25.10 Atherosclerotic heart disease of native coronary artery without angina pectoris; G20.A1 Parkinson's disease without dyskinesia, without mention of fluctuations; G47.00 Insomnia, unspecified; G62.9 Polyneuropathy, unspecified; G25.81 Restless legs syndrome; J44.9 Chronic obstructive pulmonary disease, unspecified; Z96.652 Presence of left artificial knee joint; Z88.0 Allergy status to penicillin; Z88.6 Allergy status to analgesic agent; Z79.899 Other long term (current) drug therapy; Z88.8 Allergy status to other drugs, medicaments and biological substances; Z95.810 Presence of automatic (implantable) cardiac defibrillator; Z86.73 Personal history of transient ischemic attack (TIA), and cerebral infarction without residual deficits; Z99.3 Dependence on wheelchair; Z79.02 Long term (current) use of antithrombotics/antiplatelets; Z82.49 Family history of ischemic heart disease and other diseases of the circulatory system
CPT/HCPCS: 36415; 71045; 80053; 83735; 83880; 84484; 85025; 93005; 93306; 99291; G0378

== ENCOUNTER 2023-07-25 20:36 | Observation (INO) | payer OTHER ==
[~2023-07-25] VITALS: Ht 154.9 cm; Wt 43.2 kg
[~2023-07-25 20:36] MED LIST changes: +AMIO200T33 PO; +APIX2.5T PO; +DILT60TA2 GT; +MET25T PO
[2023-07-25] MEDS ORDERED: ASPirin 81 mg TAB PO ONE (21:00)
[2023-07-25 21:28] LABS: Basophils # (auto) 0 10 ^3/uL (0-0.2); Basophils % (auto) 0.8 % (0.0-2.0); Eosinophils # (auto) 0 10 ^3/uL (0-0.8); Eosinophils % (auto) 0.8 % (0.0-7.0); Hematocrit 33.4 % (36.0-46.0); Hemoglobin 10.6 g/dL (12.2-16.2); Lymphocytes # (auto) 1.3 10 ^3/uL (0.4-5.4); Lymphocytes % (auto) 40.6 % (10.0-50.0); Mean Corpuscular Hgb Conc. 31.8 g/dL (32.0-36.0); Monocytes # (auto) 0.3 10 ^3/uL (0-1.3); Monocytes % (auto) 8.8 % (0.0-12.0); Neutrophils # (auto) 1.6 10 ^3/uL (1.6-8.6); Nucleated Red Blood Cells % 0.1 %; Red Cell Distribution Width 13.3 % (11.8-14.3); White Blood Cell 3.3 10^3/uL (4.4-10.8)
[2023-07-25 21:42] LABS: Alanine Aminotransferase 12 U/L (7-40); Albumin 3.6 g/dL (3.2-4.8); Alkaline Phosphatase 136 U/L (46-116); Anion Gap 9 (5-15); Aspartate Aminotransferase 34 U/L (13-40); BUN/Creatinine Ratio 14.2 (10.0-20.0); Blood Urea Nitrogen 20 mg/dL (9-23); Calcium 9.1 mg/dL (8.7-10.4); Carbon Dioxide 23 mmol/L (20-30); Chloride 112 mmol/L (98-107); Glucose 102 mg/dL (74-106); Sodium 144 mmol/L (136-145)
[2023-07-25 21:43] LABS: Bilirubin, Total 0.3 mg/dL (0.2-1.0)
[2023-07-25 21:46] LABS: INR 1.08 (0.9-1.15); Partial Thromboplastin Time 29.4 SEC (24.5-34.5); Prothrombin Time 11.3 sec (9.3-11.8)
[2023-07-26] VITALS (8 sets, daily range): BP systolic 160–175; BP diastolic 84–86; PULSE 60–86; RESP 13–19; TEMP 97.7–98.9; O2SAT 94–98
[2023-07-26] MEDS: FUROSEMIDE 40 MG/4 ML VIAL IV ONE (00:32)
[2023-07-26] MEDS: IOHEXOL 350 MG/ML 100ML IJ ONE (01:44)
[2023-07-26] MEDS ORDERED: HYDROcodone-ACET 5/325MG TAB PO PRN (03:00)
[2023-07-26] MEDS ORDERED: ACETAMINOPHEN 325 MG TAB PO PRN (03:00)
[2023-07-26] MEDS ORDERED: NITROGLYCERIN 0.4 MG SL TAB SL PRN (03:00)
[2023-07-26] MEDS ORDERED: MORPHINE SULFATE INJ 2 MG/ml SYRG IV PRN (03:00)
[2023-07-26] MEDS ORDERED: ONDANSETRON HCL 4 MG/2 ML VIAL IV PRN (03:00)
[2023-07-26] MEDS: NITROGLYCERIN 0.4 MG SL TAB SL ONE (03:03)
[2023-07-26 03:07] LABS: Urine Bacteria NONE SEEN /hpf (None Seen); Urine Blood Negative /uL (Negative); Urine Clarity Clear (Clear); Urine Color Colorless (Yellow); Urine Protein, UAD TRACE (Negative); Urine Specific Gravity 1.013 (1.001-1.035); Urine Urobilinogen Normal (Negative); Urine WBC <1 /hpf (0 - 5); Urine pH 6.5 (5.0-8.0)
[2023-07-26] MEDS: METOPROLOL TARTRATE 25 MG TAB PO SCH (05:17)
[2023-07-26] MEDS ORDERED: dilTIAZem 120MG ER CAP PO SCH (10:00)
[2023-07-26] MEDS ORDERED: LOSA-533 PO (10:05)
[2023-07-26] MEDS ORDERED: DILT60TA PO (10:05)
[2023-07-26] MEDS: AMIODARONE HCL 200 MG TAB PO SCH (10:29)
[2023-07-26] MEDS: PANTOPRAZOLE 40 MG TAB PO SCH (10:30)
[2023-07-26] MEDS: CLOPIDOGREL BISULFATE 75 MG TAB PO SCH (10:30)
[2023-07-26] MEDS: CARBIDOPA W LEVODOPA 25/100mg TABLET PO SCH (10:31)
[2023-07-26] MEDS: APIXABAN 2.5 MG TAB PO SCH (10:59)
[2023-07-26] MEDS ORDERED: MET25T PO (15:15)
[2023-07-26] MEDS ORDERED: DISO150C4 PO (15:15)
[2023-07-26] MEDS: METOPROLOL TARTRATE 50 MG TAB PO SCH (17:18)
[2023-07-26] MEDS ORDERED: hydrALAZINE HCL 20 MG/ML VL IV ONE (20:15)
[2023-07-26] MEDS: LOSARTAN POTASSIUM 25 MG TAB PO ONE (20:42)
== END 2023-07-26 23:07 | disposition home health service (06) ==
LOC: ER 20:36 → EDBD 20:36 → TELE 07-26 03:03 → UNDOADMIN 07-26 03:03 → TELE-CENTR 07-26 14:12 → TELE 07-26 14:12 → UNDODISIN 07-26 23:07
PROVIDERS: ADMIT Internal Medicine; ATTEND Internal Medicine
DX: R07.2 Precordial pain (principal); I42.2 Other hypertrophic cardiomyopathy; I48.0 Paroxysmal atrial fibrillation; G62.9 Polyneuropathy, unspecified; I13.0 Hypertensive heart and chronic kidney disease with heart failure and stage 1 through stage 4 chronic kidney disease, or unspecified chronic kidney disease; I50.32 Chronic diastolic (congestive) heart failure; N18.30 Chronic kidney disease, stage 3 unspecified; G20.A1 Parkinson's disease without dyskinesia, without mention of fluctuations; E78.5 Hyperlipidemia, unspecified; F02.818 Dementia in other diseases classified elsewhere, unspecified severity, with other behavioral disturbance; R79.89 Other specified abnormal findings of blood chemistry; G25.81 Restless legs syndrome; I25.10 Atherosclerotic heart disease of native coronary artery without angina pectoris; I25.2 Old myocardial infarction; K21.9 Gastro-esophageal reflux disease without esophagitis; J44.9 Chronic obstructive pulmonary disease, unspecified; Z96.652 Presence of left artificial knee joint; Z95.0 Presence of cardiac pacemaker; Z87.891 Personal history of nicotine dependence; Z88.6 Allergy status to analgesic agent; Z88.0 Allergy status to penicillin; Z88.5 Allergy status to narcotic agent
CPT/HCPCS: 36415; 71045; 71275; 80053; 81001; 83605; 83880; 84484; 85025; 85379; 85610; 85730; 87040; 93005; 96374; 99285; G0378; J0360; J1940; Q9967

== ENCOUNTER 2023-09-08 02:05 | Inpatient (IN) | payer OTHER ==
[~2023-09-08] VITALS: Ht 154.9 cm; Wt 60.0 kg
[~2023-09-08 02:05] MED LIST changes: -AMIO200T33 PO; +AMLO1TAB22 PO; -DILT120C12 PO; -DILT60TA2 GT; -DIPH25TA PO; +DISO150C4 PO
[2023-09-08 02:24] LABS: Basophils # (auto) 0 10 ^3/uL (0-0.2); Basophils % (auto) 1.1 % (0.0-2.0); Eosinophils # (auto) 0 10 ^3/uL (0-0.8); Eosinophils % (auto) 0.5 % (0.0-7.0); Hematocrit 36.9 % (36.0-46.0); Hemoglobin 11.8 g/dL (12.2-16.2); Lymphocytes # (auto) 1.4 10 ^3/uL (0.4-5.4); Lymphocytes % (auto) 40.5 % (10.0-50.0); Mean Corpuscular Hemoglobin 27.9 pg (28.0-32.0); Mean Corpuscular Hgb Conc. 31.8 g/dL (32.0-36.0); Mean Corpuscular Volume 87.7 fL (80.0-100.0); Monocytes # (auto) 0.3 10 ^3/uL (0-1.3); Monocytes % (auto) 8.3 % (0.0-12.0); Neutrophils # (auto) 1.7 10 ^3/uL (1.6-8.6); Neutrophils % (auto) 49.6 % (37.0-80.0); Red Blood Cells 4.21 10^6/uL (4.0-5.20); Red Cell Distribution Width 13.1 % (11.8-14.3); White Blood Cell 3.3 10^3/uL (4.4-10.8)
[2023-09-08 02:40] LABS: INR 1.03 (0.9-1.15); Partial Thromboplastin Time 29.6 SEC (24.5-34.5); Prothrombin Time 10.9 sec (9.3-11.8)
[2023-09-08 02:42] LABS: Albumin 3.9 g/dL (3.2-4.8); Alkaline Phosphatase 159 U/L (46-116); Anion Gap 8 (5-15); Aspartate Aminotransferase 39 U/L (13-40); BUN/Creatinine Ratio 13.2 (10.0-20.0); Bilirubin, Total 0.3 mg/dL (0.2-1.0); Blood Urea Nitrogen 14 mg/dL (9-23); Calcium 9.8 mg/dL (8.7-10.4); Carbon Dioxide 25 mmol/L (20-30); Chloride 105 mmol/L (98-107); Glucose 116 mg/dL (74-106); Potassium 3.9 mmol/L (3.5-5.1); Sodium 138 mmol/L (136-145)
[2023-09-08 03:09] LABS: Alanine Aminotransferase < 9 U/L (7-40)
[2023-09-08 04:00] VITALS: PULSE 62; RESP 18; O2SAT 96
[2023-09-08] MEDS: NITROGLYCERIN 2% OINT 1GM PKG TD ONE (04:48)
[2023-09-08] MEDS: ONDANSETRON HCL 4 MG/2 ML VIAL IV ONE (04:49)
[2023-09-08] MEDS ORDERED: traMADol HCL 50 MG TAB PO PRN (06:45)
[2023-09-08] MEDS: traMADol HCL 50 MG TAB PO ONE (06:46)
[2023-09-08 07:25] VITALS: PULSE 60; RESP 10; O2SAT 96
[2023-09-08] MEDS: FUROSEMIDE 20 MG/2 ML VIAL IV ONE (11:34)
[2023-09-08] MEDS: ENOXAPARIN SOD 60 MG/0.6 ML SYRINGE SC ONE (11:34)
[2023-09-08] MEDS: METOPROLOL TARTRATE 50 MG TAB PO SCH (14:36)
[2023-09-08] MEDS: DISOPYRAMIDE PHOSPHATE 150 MG PO SCH (15:00)
[2023-09-08] MEDS: GABAPENTIN 300 MG CAP PO SCH (18:17)
[2023-09-08 21:00] VITALS: BP 144/90; PULSE 61; RESP 18; TEMP 98.1; O2SAT 95
[2023-09-08 21:30] VITALS: PULSE 60; RESP 15; O2SAT 96
[2023-09-08] MEDS ORDERED: MELATONIN 5 MG TAB PO ONE (22:00)
[2023-09-08] MEDS ORDERED: METOPROLOL TARTRATE 25 MG TAB PO SCH (22:00)
[2023-09-08 22:37] VITALS: BP 140/85; PULSE 62; RESP 18; TEMP 97.2; O2SAT 95
[2023-09-08] MEDS: CARBIDOPA W LEVODOPA 25/100mg TABLET PO SCH (23:04)
[2023-09-08] MEDS: ATORVASTATIN 20 MG TAB PO SCH (23:05)
[2023-09-08] MEDS: ENOXAPARIN SOD 60 MG/0.6 ML SYRINGE SC SCH (23:05)
[2023-09-09 01:00] VITALS: BP 152/80; PULSE 89; RESP 16; TEMP 98.1; O2SAT 98
[2023-09-09] MEDS ORDERED: DISO150C4 PO (01:11)
[2023-09-09 05:00] VITALS: BP 147/76; PULSE 84; RESP 17; TEMP 98.4; O2SAT 97
[2023-09-09 06:52] LABS: Basophils # (auto) 0 10 ^3/uL (0-0.2); Basophils % (auto) 0.9 % (0.0-2.0); Eosinophils # (auto) 0 10 ^3/uL (0-0.8); Eosinophils % (auto) 0.8 % (0.0-7.0); Hematocrit 36.4 % (36.0-46.0); Hemoglobin 11.3 g/dL (12.2-16.2); Lymphocytes # (auto) 1.8 10 ^3/uL (0.4-5.4); Lymphocytes % (auto) 47.5 % (10.0-50.0); Mean Corpuscular Hemoglobin 27.1 pg (28.0-32.0); Mean Corpuscular Hgb Conc. 31.1 g/dL (32.0-36.0); Monocytes # (auto) 0.3 10 ^3/uL (0-1.3); Monocytes % (auto) 9.1 % (0.0-12.0); Neutrophils # (auto) 1.6 10 ^3/uL (1.6-8.6); Neutrophils % (auto) 41.7 % (37.0-80.0); Nucleated Red Blood Cells % 0.1 %; Red Blood Cells 4.19 10^6/uL (4.0-5.20); Red Cell Distribution Width 13.2 % (11.8-14.3); White Blood Cell 3.7 10^3/uL (4.4-10.8)
[2023-09-09 06:57] LABS: Albumin 3.7 g/dL (3.2-4.8); Alkaline Phosphatase 138 U/L (46-116); Anion Gap 9 (5-15); Aspartate Aminotransferase 39 U/L (13-40); BUN/Creatinine Ratio 15.3 (10.0-20.0); Blood Urea Nitrogen 21 mg/dL (9-23); Calcium 9.9 mg/dL (8.7-10.4); Carbon Dioxide 25 mmol/L (20-30); Chloride 105 mmol/L (98-107); Glucose 72 mg/dL (74-106); Potassium 4.2 mmol/L (3.5-5.1); Sodium 139 mmol/L (136-145)
[2023-09-09 06:58] LABS: Bilirubin, Total 0.4 mg/dL (0.2-1.0); Total Protein 7.3 g/dL (5.7-8.2)
[2023-09-09 07:00] LABS: Alanine Aminotransferase < 9 U/L (7-40)
[2023-09-09 08:00] VITALS: PULSE 60; O2SAT 95
[2023-09-09 08:49] VITALS: BP 132/75; PULSE 60; RESP 18; TEMP 98; O2SAT 95
[2023-09-09] MEDS: ASPirin-EC 81 mg tab PO SCH (09:48)
[2023-09-09] MEDS: PANTOPRAZOLE 40 MG TAB PO SCH (09:48)
[2023-09-09] MEDS: CLOPIDOGREL BISULFATE 75 MG TAB PO SCH (09:48)
[2023-09-09] MEDS ORDERED: amLODIPine BESYLATE 5 MG TAB PO SCH (10:00)
[2023-09-09 12:32] VITALS: BP 128/69; PULSE 63; RESP 18; TEMP 98.3; O2SAT 95
[2023-09-09] MEDS ORDERED: MET25T PO (13:47)
[2023-09-09 16:54] VITALS: BP 143/76; PULSE 65; RESP 14; TEMP 97.4; O2SAT 98
[2023-09-09] MEDS ORDERED: METOPROLOL TARTRATE 50 MG TAB PO SCH (22:00)
== END 2023-09-09 17:30 | disposition home or self-care (01) | DRG 280 ==
LOC: EDBD 02:05 → ER 02:05 → TELE-WESTW 07:03 → TELE 07:03 → TELE-WESTW 22:30
PROVIDERS: ADMIT Internal Medicine; ATTEND Internal Medicine
DX: I11.0 Hypertensive heart disease with heart failure (principal); I50.33 Acute on chronic diastolic (congestive) heart failure; I21.A1 Myocardial infarction type 2; I42.0 Dilated cardiomyopathy; I42.2 Other hypertrophic cardiomyopathy; I48.0 Paroxysmal atrial fibrillation; G62.9 Polyneuropathy, unspecified; K21.9 Gastro-esophageal reflux disease without esophagitis; E78.5 Hyperlipidemia, unspecified; I25.10 Atherosclerotic heart disease of native coronary artery without angina pectoris; F02.80 Dementia in other diseases classified elsewhere, unspecified severity, without behavioral disturbance, psychotic disturbance, mood disturbance, and anxiety; G20.A1 Parkinson's disease without dyskinesia, without mention of fluctuations; I44.7 Left bundle-branch block, unspecified; J44.9 Chronic obstructive pulmonary disease, unspecified; Z96.652 Presence of left artificial knee joint; Z99.3 Dependence on wheelchair; Z86.73 Personal history of transient ischemic attack (TIA), and cerebral infarction without residual deficits; Z79.01 Long term (current) use of anticoagulants; Z79.02 Long term (current) use of antithrombotics/antiplatelets; Z95.810 Presence of automatic (implantable) cardiac defibrillator; Z91.199 Patient's noncompliance with other medical treatment and regimen due to unspecified reason; Z88.6 Allergy status to analgesic agent; Z88.0 Allergy status to penicillin; Z82.49 Family history of ischemic heart disease and other diseases of the circulatory system; Z88.5 Allergy status to narcotic agent; Z79.82 Long term (current) use of aspirin; Z79.899 Other long term (current) drug therapy
CPT/HCPCS: 36415; 71045; 80053; 83735; 83880; 84484; 85025; 85610; 85730; 93005; 96372; 96374; 96375; G0378; J2405

== ENCOUNTER 2024-01-23 15:22 | Inpatient (IN) | payer OTHER ==
[~2024-01-23] VITALS: Ht 154.9 cm; Wt 63.9 kg
[~2024-01-23 15:22] MED LIST changes: -CLOP75TA70 PO
[2024-01-23 16:05] VITALS: PULSE 89; RESP 18; O2SAT 96
[2024-01-23] MEDS: METOPROLOL TARTRATE 50 MG TAB PO ONE (16:24)
[2024-01-23 16:44] LABS: Basophils # (auto) 0 10 ^3/uL (0-0.2); Basophils % (auto) 0.5 % (0.0-2.0); Eosinophils # (auto) 0 10 ^3/uL (0-0.8); Eosinophils % (auto) 0.5 % (0.0-7.0); Hematocrit 31.5 % (36.0-46.0); Hemoglobin 10.3 g/dL (12.2-16.2); Lymphocytes # (auto) 1.3 10 ^3/uL (0.4-5.4); Lymphocytes % (auto) 41.1 % (10.0-50.0); Mean Corpuscular Hemoglobin 28.5 pg (28.0-32.0); Mean Corpuscular Hgb Conc. 32.7 g/dL (32.0-36.0); Mean Corpuscular Volume 87.4 fL (80.0-100.0); Monocytes # (auto) 0.3 10 ^3/uL (0-1.3); Monocytes % (auto) 9.6 % (0.0-12.0); Neutrophils # (auto) 1.5 10 ^3/uL (1.6-8.6); Neutrophils % (auto) 48.3 % (37.0-80.0); Nucleated Red Blood Cells % 0.3 %; Platelet Count (auto) 132 10^3/uL (140-450); White Blood Cell 3.2 10^3/uL (4.4-10.8)
[2024-01-23 16:51] LABS: Alanine Aminotransferase 15 U/L (7-40); Albumin 3.4 g/dL (3.2-4.8); Alkaline Phosphatase 146 U/L (46-116); Anion Gap 8 (5-15); Aspartate Aminotransferase 37 U/L (13-40); BUN/Creatinine Ratio 16.3 (10.0-20.0); Blood Urea Nitrogen 23 mg/dL (9-23); Calcium 8.7 mg/dL (8.7-10.4); Carbon Dioxide 24 mmol/L (20-30); Chloride 110 mmol/L (98-107); Glucose 136 mg/dL (74-106); Magnesium 1.8 mg/dL (1.6-2.6); Potassium 3.4 mmol/L (3.5-5.1); Sodium 142 mmol/L (136-145)
[2024-01-23 16:52] LABS: Bilirubin, Total 0.3 mg/dL (0.2-1.0); Total Protein 6.6 g/dL (5.7-8.2)
[2024-01-23 16:56] LABS: INR 1.18 (0.9-1.15); Prothrombin Time 12.4 sec (9.3-11.8)
[2024-01-23] MEDS: ASPirin-EC 325mg tab PO ONE (17:06)
[2024-01-23 19:30] VITALS: PULSE 89; RESP 18; O2SAT 96
[2024-01-23] MEDS ORDERED: DOCUSATE SOD 100 MG CAP PO PRN (21:45)
[2024-01-23] MEDS ORDERED: NITROGLYCERIN 0.4 MG SL TAB SL PRN (21:45)
[2024-01-23] MEDS ORDERED: ONDANSETRON HCL 4 MG/2 ML VIAL IV PRN (21:45)
[2024-01-23] MEDS: MAGNESIUM SULFATE 1GM/100ML 100 ML IV SCH (22:24)
[2024-01-23] MEDS: ATORVASTATIN 20 MG TAB PO SCH (22:25)
[2024-01-23] MEDS: POTASSIUM EFFERVESENT TAB 25 MEQ PO ONE (22:25)
[2024-01-23] MEDS: CARBIDOPA W LEVODOPA 25/100mg TABLET PO SCH (22:25)
[2024-01-23] MEDS: GABAPENTIN 300 MG CAP PO SCH (22:27)
[2024-01-23 22:37] LABS: Triglycerides 156 mg/dL (< 150)
[2024-01-23 22:38] LABS: LDL Cholesterol 54 mg/dL (< 100)
[2024-01-23 22:39] LABS: Cholesterol 111 mg/dL (< 200); HDL Cholesterol 31 mg/dL (40-59)
[2024-01-24] VITALS (13 sets, daily range): BP systolic 118–146; BP diastolic 60–78; PULSE 56–103; RESP 14–18; TEMP 36.8; O2SAT 95–100
[2024-01-24] MEDS: PANTOPRAZOLE 40 MG TAB PO SCH (06:00)
[2024-01-24 07:45] LABS: Anion Gap 7 (5-15); Carbon Dioxide 25 mmol/L (20-30); Chloride 109 mmol/L (98-107); Potassium 3.9 mmol/L (3.5-5.1); Sodium 141 mmol/L (136-145)
[2024-01-24 07:46] LABS: Calcium 9.3 mg/dL (8.7-10.4)
[2024-01-24 07:50] LABS: Glucose 78 mg/dL (74-106)
[2024-01-24 07:51] LABS: BUN/Creatinine Ratio 13.2 (10.0-20.0); Blood Urea Nitrogen 16 mg/dL (9-23); Magnesium 2.5 mg/dL (1.6-2.6)
[2024-01-24] MEDS: METOPROLOL TARTRATE 25 MG TAB PO SCH (09:41)
[2024-01-24] MEDS ORDERED: AMIO200T13 PO (21:02)
[2024-01-24] MEDS: AMIODARONE HCL 200 MG TAB PO SCH (22:22)
[2024-01-25 05:00] VITALS: BP 126/60; PULSE 65; RESP 16; TEMP 98.1; O2SAT 99
== END 2024-01-25 00:22 | disposition home health service (06) | DRG 281 ==
LOC: ER 15:22 → EDBD 15:22 → EDUNIT# 15:22 → TELE 21:44 → TELE-WESTW 21:44
PROVIDERS: ADMIT Internal Medicine; ATTEND Internal Medicine
DX: I48.20 Chronic atrial fibrillation, unspecified (principal); I13.0 Hypertensive heart and chronic kidney disease with heart failure and stage 1 through stage 4 chronic kidney disease, or unspecified chronic kidney disease; I21.A1 Myocardial infarction type 2; I48.92 Unspecified atrial flutter; I42.8 Other cardiomyopathies; G20.A1 Parkinson's disease without dyskinesia, without mention of fluctuations; E78.5 Hyperlipidemia, unspecified; G62.9 Polyneuropathy, unspecified; I50.9 Heart failure, unspecified; K21.9 Gastro-esophageal reflux disease without esophagitis; N18.30 Chronic kidney disease, stage 3 unspecified; I95.9 Hypotension, unspecified; Z88.6 Allergy status to analgesic agent; Z88.8 Allergy status to other drugs, medicaments and biological substances; Z91.09 Other allergy status, other than to drugs and biological substances; Z88.0 Allergy status to penicillin; Z86.73 Personal history of transient ischemic attack (TIA), and cerebral infarction without residual deficits; Z79.01 Long term (current) use of anticoagulants; Z82.49 Family history of ischemic heart disease and other diseases of the circulatory system; I25.2 Old myocardial infarction; Z95.810 Presence of automatic (implantable) cardiac defibrillator
CPT/HCPCS: 36415; 71045; 80048; 80053; 80061; 83605; 83735; 83880; 84484; 85025; 85610; 87040; 93005; 93306; 99291; G0378

== ENCOUNTER 2025-01-07 10:27 | Emergency (ER) | payer OTHER ==
[~2025-01-07] VITALS: Ht 160 cm; Wt 55.0 kg
[~2025-01-07 10:27] MED LIST changes: +AMIO200T13 PO; -DISO150C4 PO
--- NOTE | 2025-01-07 10:59 | ECG ---
[facility] Test Date: 2025-01-07 Test Time: 10:29:32 Pat Name: DELIA TRUONG Department: ED Room: Gender: F Fleet Assistant: : 1945 Requested By: CLIFF CALVIN Order Number: [id number] Reading MD: Geo Miller Measurements Intervals [place] Rate: 60 P: 0 IN: 110 QRS: 20 QRSD: 125 T: 177 QT: 487 QTc: 487 Interpretive Statements Atrial-paced rhythm Left bundle branch block Electronically Signed On 01-07-2025 18:49:18 PDT by Geo Miller Please click the below link to view image of tracing.
--- NOTE | 2025-01-07 11:20 | ED.PDOC ---
History of Present Illness HPI Comments This is a 79-year-old female with past medical history of HFpEF (HCM, EF 60%), hypertension, dyslipidemia, multiple stroke, paroxysmal AFib (on Eliquis), status post AICD, and restless leg syndrome brought to the hospital by EMS due to generalized weakness since today morning. She also reports of headache and feeling sick. She denies fever, cough, which has been, nausea, vomiting, dysuria, blurry vision, or any recent motor or sensory deficits. 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 Home meds: Gabapentin, atorvastatin, Eliquis, clopidogrel, metoprolol, los aracelis, carvedilol, carbidopa/levodopa and amlodipine Social history: Ex-smoker, uses walker/wheelchair for mobility, stairs with sons at home. Chief Complaint: General Weakness Time Seen by MD: 10:34 Primary Care Provider: unknown Allergies: Coded Allergies: Aspirin (Verified Allergy, Intermediate, 01/12/22) Acetaminophen (Verified Allergy, Unknown, 09/08/23) Caffeine (Verified Allergy, Unknown, 04/15/18) Hydrocodone (Verified Allergy, Unknown, 09/08/23) Morphine (Verified Allergy, Unknown, 09/08/23) Penicillins (Verified Allergy, Unknown, 04/15/18) Home Meds Active Scripts Amiodarone HCl (Amiodarone HCl) 200 Mg Tab, 200 MG PO Q12HR, #60 TAB Prov:KALEB BERTRAND MD 01/24/24 Metoprolol Tartrate (Lopressor) 25 Mg Tb, 25 MG PO BID, #60 TAB Prov:JD BERTRAND MD 09/09/23 Apixaban Base (ELIQUIS) 2.5 Mg Tab, 2.5 MG PO BID, #60 TAB Prov:KALEB BERTRAND MD 06/27/23 Reported Medications Amlodipine Besylate (Amlodipine Besylate) 5 Mg Tab, 1 TAB PO DAILY 08/18/23 Omeprazole (Gnp Omeprazole) 20 Mg Tab, 1 TAB PO DAILY, #90 TAB 1 Refill 03/25/18 Atorvastatin Calcium (ATORVASTATIN CALCIUM) 20 Mg Tab, 1 TAB PO DAILY, #30 TAB 5 Refills 03/25/18 Levodopa W/Carbidopa (Sinemet) 25 /100 Tab, 1 TAB PO BID for 30 Days, #60 TAB 03/25/18 Gabapentin (Gabapentin) 600 Mg Tab, 600 MG PO QID for 30 Days, MG 03/25/18 Mode of Arrival: EMS Severity: Moderate (]]]]]]]]]]]]]]]]]]]]]]]]]]]]]]]]]]]]]]]]]]]]]]]]]]]]]]]]) Timing: Hours (]]]]]]]]]]]]]]]]]]]]]]]]]]]]]]]]]]]]]]]]]]]]]]]]]]]]]]]]]]]]]]]]]]]]]]]]]]]]]]] ]]]]]]]]]]]]]]]]]]]]]]]]]]]]]]]]]]]]]]]]]) Duration: Hours (]]]]]]]]]]]]]]]]]]]]]]]]]]]]]]]]]]]]]]]]]]]]]]]]]]]]]]]]]]]]]]]]]]]]]]]]]]]]]]] ]]]]]]]]]] ]]]]]]]]]]]]]]]]]]]]]]]]]]]]]]]]]]]]]]]]]]]]]]]]]]]]]]]]]]]]]]]]]]]]]]]]]) Past Medical History PAST MEDICAL HISTORY: AFIB, CHF, CVA, High Lipids, HTN, PA, TIA Surgical History: Appendectomy, BTL, Pacemaker, Tonsillectomy CHANGE OVER History: Denies all CHANGE OVER Hx Family History Family History: Unknown Social History Smoker: Non-Smoker Alcohol: Denies ETOH Use Drugs: Denies Drug Use Lives In: Home Constitutional: reports: fatigue, weakness; denies: chills, diaphoresis, fever, malaise, sweats, others EENTM: denies: blurred vision, double vision, ear bleeding, ear discharge, ear drainage, ear pain, ear ringing, eye pain, eye redness, hearing loss, mouth pain, mouth swelling, nasal discharge, nose bleeding, nose congestion, nose p ain, photophobia, tearing, throat pain, throat swelling, voice changes, others Respiratory: denies: cough, hemoptysis, orthopnea, SOB at rest, shortness of breath, SOB with excertion, stridor, wheezing, others Cardiovascular: denies: chest pain, dizzy spells, diaphoresis, Dyspnea on exertion, edema, irregular heart beat, left arm pain, lightheadedness, palpitations, PND, syncope, others Gastrointestinal: denies: abdomen distended, abdominal pain, blood streaked bowels, constipated, diarrhea, dysphagia, difficulty swallowing, hematemesis, melena, nausea, poor appetite, poor fluid intake, rectal bleeding, rectal pain, vomiting, others Neurological: reports: headache; denies: dizziness, fainting, left sided numbness, left sided weakness, numbness, paresthesia, pre-existing deficit, right sided numbness, right sided weakness, seizure, speech problems, tingling, tremors, weakness, others Musculoskeletal: denies: back pain, gout, joint pain, joint swelling, muscle pain, muscle stiffness, neck pain, others Integumetry: denies: bruises, change in color, change in hair/nails, dryness, laceration, lesions, lumps, rash, wounds, others Allergic/Immunocompromised: denies: Difficulty Healing, Frequent Infections, Hives, Itching, others Hematologic/Lymphatic: denies: anemia, blood clots, easy bleeding, easy bruising, swollen glands, others Endocrine: denies: excessive hunger, excessive sweating, excessive thirst, excessive urination, flushing, intolerance to cold, intolerance to heat, unexplained weight gain, unexplained weight loss, others Psychiatric: denies: anxiety, bipolar disorder, depression, hopeless, panic disorder, schizophrenia, sleepless, suicidal, others Physical Exam General Appearance: Mild Distress HEENT: Normal ENT Inspection, Pharynx Normal, TMs Normal Neck: Full Range of Motion, Non-Tender, Normal, Normal Inspection Respiratory: Chest Non-Tender, Lungs Clear, No Accessory Muscle Use, No Respiratory Distress, Normal Breath Sounds Cardiovascular: No Edema, No JVD, No Murmur, No Gallop, Normal Peripheral Pulses, Regular Rate/Rhythm Breast Exam: Deferred Gastrointestinal: No Organomegaly, Non Tender, No Pulsatile Mass, Normal Bowel Sounds, Soft Genitalia: Deferred Pelvic: Deferred Rectal: Deferred Extremities: No calf tenderness, Normal capillary refill, Normal inspection, Normal range of motion, Non-tender, No pedal edema Neurologic: Alert, 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 Was a procedure done?: No Differential Dx Considerations may include: Sepsis Pneumonitis Demand ischemia X-Ray, Labs, Meds, VS Vital Signs Date Time Temp Pulse Resp B/P (MAP) Pulse Ox O2 Delivery O2 Flow Rate FiO2 01/07/25 12:43 97.6 61 16 132/65 (87) 96 97.6 01/07/25 12:43 61 16 96 Room Air 01/07/25 10:36 98.1 60 18 137/62 94 98.1 01/07/25 10:29 60 Lab Test 01/07/25 12:33 01/07/25 12:32 01/07/25 12:28 01/07/25 11:35 Range/Units Influenza Type A Antigen Negative Negative Influenza Type B Antigen Negative Negative SARS-CoV-2 Antigen (Rapid) Negative NEGATIVE Urine Color Yellow Yellow Urine Clarity Clear Clear Urine pH 6.0 5.0-9.0 Urine Specific [place] 1.019 1.001-1.035 Urine Protein 2+ H Negative Urine Ketones Negative Negative Urine Blood Negative Negative /uL Urine Nitrite Negative Negative Urine Bilirubin Negative Negative Urine Urobilinogen Normal Negative mg/dL Urine Leukocyte Esterase 1+ Negative /uL Urine RBC 1 0 - 4 /hpf Urine Microscopic WBC 6 H 0-5 /HPF Urine Squamous Epithelial Cells Few <5 /hpf Urine Bacteria Few H None Seen /hpf Urine Hyaline Casts Few 0 - 2 /lpf Urine Mucus Few None Seen Urine Glucose Normal Normal mg/dL White Blood Count 2.9 L 4.4-10.8 10^3/uL Red Blood Count 4.04 4.0-5.20 10^6/uL Hemoglobin 11.3 L 12.2-16.2 g/dL Hematocrit 35.0 L 36.0-46.0 % Mean Corpuscular Volume 86.6 80.0-100.0 fL Mean Corpuscular Hemoglobin 27.9 L 28.0-32.0 pg Mean Corpuscular Hemoglobin Concent 32.2 32.0-36.0 g/dL Red Cell Distribution Width 13.6 11.8-14.3 % Platelet Count 170 140-450 10^3/uL Mean Platelet Volume 9.3 6.9-10.8 fL Neutrophils (%) (Auto) 54.1 37.0-80.0 % Lymphocytes (%) (Auto) 34.8 10.0-50.0 % Monocytes (%) (Auto) 9.9 0.0-12.0 % Eosinophils (%) (Auto) 0.6 0.0-7.0 % Basophils (%) (Auto) 0.6 0.0-2.0 % Neutrophils # (Auto) 1.6 1.6-8.6 10 ^3/uL Lymphocytes # (Auto) 1.0 0.4-5.4 10 ^3/uL Monocytes # (Auto) 0.3 0-1.3 10 ^3/uL Eosinophils # (Auto) 0 0-0.8 10 ^3/uL Basophils # (Auto) 0 0-0.2 10 ^3/uL Nucleated Red Blood Cells 0.1 % Prothrombin Time 11.6 9.3-11.8 sec Prothrombin Time INR 1.11 0.9-1.15 Sodium Level 141 136-145 mmol/L Potassium Level 3.7 3.5-5.1 mmol/L Chloride Level 107 98-107 mmol/L Carbon Dioxide Level 25 20-31 mmol/L Anion Gap 9 5-15 Blood Urea Nitrogen 16 9-23 mg/dL Creatinine 1.53 H 0.550-1.02 mg/dL Glomerular Filtration Rate Calc 34 >90 mL/min BUN/Creatinine Ratio 10.5 10.0-20.0 Serum Glucose 115 H 74-106 mg/dL Calcium Level 9.3 8.7-10.4 mg/dL Total Bilirubin 0.4 0.2-1.0 mg/dL Aspartate Amino Transferase (AST) 34 13-40 U/L Alanine Aminotransferase (ALT) < 9 7-40 U/L Alkaline Phosphatase 126 H 46-116 U/L Troponin I High Sensitivity 47 *H </=34 ng/L Total Protein 7.8 5.7-8.2 g/dL Albumin 4.2 3.2-4.8 g/dL Current Medications Medications (Trade) Dose Ordered Sig/Nirmala Route Start Time Stop Time Status Last Admin Sodium Chloride 500 ml @ 500 mls/hr Q1H ONCE IV 01/07/25 11:30 01/07/25 12:29 DC 01/07/25 13:36 Upon 1st encounter, the patient is vitally stable. Still complaining of generalized weakness and headache. We will ordered head CT scan, CBC, CMP, UA, EKG and troponin Time of 1ST Reevaluation: 11:10 Reevaluation 1ST: Unchanged Time of 2ND Reevaluation: 15:00 Reevaluation 2ND: Unchanged Patient Education/Counseling: Diagnosis, Treatment, Prognosis, Need For Follow Up Family Education/Counseling: Diagnosis, Treatment, Need For Follow Up SEPSIS Sepsis Screen Date sepsis recognized/suspect: Jan 07, 2025 Time Sepsis recognized/suspect: 1040 Recent Procedure: No On Antibiotic Therapy: No Respiratory Rate >20: No Heart Rate >90: No Temp<36 C (96.8 F) or >38.3 C: No SBP <90 or MAP <65 mmHG: No New Acute Mental Status Change: No Is the patient on CPAP, BIPAP,: No Physician Orders Head Without Contrast (01/07/25 11:09) Chest Xray 1 View (01/07/25 11:23) Vital Signs Date Time Temp Pulse Resp B/P (MAP) Pulse Ox O2 Delivery O2 Flow Rate FiO2 01/07/25 12:43 97.6 61 16 132/65 (87) 96 97.6 01/07/25 12:43 61 16 96 Room Air 01/07/25 10:36 98.1 60 18 137/62 94 98.1 01/07/25 10:29 60 Laboratory Tests Test 01/07/25 11:35 White Blood Count 2.9 10^3/uL (4.4-10.8) L Medications Medications Dose Ordered Sig/Nirmala Route Start Time Stop Time Status Last Admin Dose Admin Sodium Chloride 500 ml @ 500 mls/hr Q1H ONCE IV 01/07/25 11:30 01/07/25 12:29 DC 01/07/25 13:36 Departure 1 Departure Time of Disposition: 15:30 Impression: Primary Impression: Pneumonitis Additional Impressions: Demand ischemia Sepsis Disposition: ADMITTED INPATIENT Condition: Guarded Critical Care Note Critical Care Time?: No Stability Stability form required: No Heart Score Heart Score: Heart Score Response (Comments) Value History N/A 0 EKG Repolarization Disturb 1 Age >65 2 Risk Factors >3 or Hx ASHD 2 Troponin 1-2 x's Normal limit 1 Total 6 COLETTE BARBOSA RESDIENT Jan 07, 2025 11:20
[2025-01-07 11:54] LABS: Hematocrit 35.0 % (36.0-46.0); Hemoglobin 11.3 g/dL (12.2-16.2); Mean Corpuscular Hemoglobin 27.9 pg (28.0-32.0); Mean Corpuscular Volume 86.6 fL (80.0-100.0); Nucleated Red Blood Cells % 0.1 %
[2025-01-07 12:09] LABS: Anion Gap 9 (5-15); BUN/Creatinine Ratio 10.5 (10.0-20.0); Blood Urea Nitrogen 16 mg/dL (9-23); Calcium 9.3 mg/dL (8.7-10.4); Carbon Dioxide 25 mmol/L (20-31); Potassium 3.7 mmol/L (3.5-5.1); Sodium 141 mmol/L (136-145); Total Protein 7.8 g/dL (5.7-8.2)
[2025-01-07 12:10] LABS: Albumin 4.2 g/dL (3.2-4.8); Bilirubin, Total 0.4 mg/dL (0.2-1.0)
[2025-01-07 12:11] LABS: Alanine Aminotransferase < 9 U/L (7-40); Alkaline Phosphatase 126 U/L (46-116); Chloride 107 mmol/L (98-107); Glucose 115 mg/dL (74-106)
[2025-01-07 12:15] LABS: INR 1.11 (0.9-1.15); Prothrombin Time 11.6 sec (9.3-11.8)
[2025-01-07 12:43] VITALS: BP 132/65; PULSE 61; RESP 16; TEMP 97.6; O2SAT 96
--- NOTE | 2025-01-07 12:50 | DVH ---
CHEST RADIOGRAPH Indication: Pneumnia Technique: Single frontal view of the chest was obtained COMPARISON: XY CHEST PORTABLE on DOS: 03/24/24, XY CHEST XRAY 1 VIEW on DOS: 01/24/24, XY CHEST PORTAB LE on DOS: 01/23/24, XY CHEST PORTABLE on DOS: 09/08/23, XY CHEST PORTABLE on DOS: 07/25/23 FINDINGS: Lines and Tubes: Left chest AICD Lungs: Congestion Pleura: No effusion. No pneumothorax. Cardiomediastinal contours: Unremarkable Bones: Unremarkable IMPRESSION: Increased interstital prominence. This may represent pulmonary vascular congestion and/or viral pneum onia. Clinical correlation advised.
--- NOTE | 2025-01-07 12:52 | DVH ---
EXAM: CT HEAD WITHOUT CONTRAST INDICATION: ALOC TECHNIQUE: CT of the head without intravenous contrast. Radiation Dose : 1. Head: CT Dose: CTDI volume is 53 mGy. Dose-length product is 953 mGy*cm The dose indicators for CT are the volume Computed Tomography (CT) Dose Index (CTDIvol) and the Dose Length Product (DLP), and are measured in units of mGy and mGy-cm, respectively. These indicators are not patient dose, but values generated from the CT scanner acquisition factors. The report includes radiation exposure data for exposures received during this examination. COMPARISON: CT HEAD WITHOUT CONTRAST on DOS: 08/18/23, CT ANGIO HEAD/NECK on DOS: 08/17/23, CT HEAD WITHO UT CONTRAST on DOS: 08/17/23, HEAD WITHOUT CONTRAST on DOS: 01/19/22 FINDINGS: There is no evidence of acute intracranial hemorrhage, extra-axial collection, mass effect, midline s hift, herniation or hydrocephalus. The ventricles, sulci and cisterns are age appropriate. The meléndez-white differentiation is intact. Patchy periventricular and subcortical white matter hypoattenuation is nonspecific but may be related to small vessel ischemic disease. The visualized paranasal sinuses and mastoid air cells are clear. The surrounding soft tissues and osseous structures are unremarkable. IMPRESSION: No acute intracranial abnormality. Radiation optimization: All CT scans at this facility use at least one of these dose optimization filomena hniques: automated exposure control mA and/or kV adjustment per patient size (includes targeted exam s where dose is matched to clinical indication) or iterative reconstruction.
[2025-01-07] MEDS: SODIUM CHLORIDE 0.9% 500 ML IV ONE (13:36)
[2025-01-07 13:38] LABS: COVID19 ANTIGEN SOFIA FIA NEGATIVE (NEGATIVE)
[2025-01-07 14:06] LABS: Urine Protein, UAD 2+ (Negative)
== END 2025-01-07 17:50 | disposition left against medical advice (07) ==
LOC: ER 10:27 → EDBD 10:27 → ER 17:50
DX: J18.9 Pneumonia, unspecified organism (principal); I24.89 Other forms of acute ischemic heart disease; A41.9 Sepsis, unspecified organism; I11.0 Hypertensive heart disease with heart failure; I50.9 Heart failure, unspecified; E78.5 Hyperlipidemia, unspecified; I44.7 Left bundle-branch block, unspecified; Z20.822 Contact with and (suspected) exposure to COVID-19; Z79.899 Other long term (current) drug therapy; Z86.73 Personal history of transient ischemic attack (TIA), and cerebral infarction without residual deficits; Z87.891 Personal history of nicotine dependence; Z90.49 Acquired absence of other specified parts of digestive tract; Z90.89 Acquired absence of other organs; Z99.3 Dependence on wheelchair; Z98.51 Tubal ligation status; Z95.810 Presence of automatic (implantable) cardiac defibrillator; Z88.0 Allergy status to penicillin; Z88.5 Allergy status to narcotic agent; Z88.6 Allergy status to analgesic agent; Z88.8 Allergy status to other drugs, medicaments and biological substances
CPT/HCPCS: 36415; 70450; 71045; 80053; 81001; 84484; 85025; 85610; 87426; 87804; 93005; 99285; J7040

== ENCOUNTER 2025-04-22 13:50 | Inpatient (IN) | payer OTHER ==
[~2025-04-22] VITALS: Ht 152.4 cm; Wt 59.4 kg
[2025-04-22 14:36] LABS: Hematocrit 37.0 % (36.0-46.0); Hemoglobin 11.8 g/dL (12.2-16.2); Mean Corpuscular Hemoglobin 27.5 pg (28.0-32.0); Mean Corpuscular Volume 86.2 fL (80.0-100.0); Nucleated Red Blood Cells % 0.1 %
[2025-04-22 14:48] LABS: Chloride 105 mmol/L (98-107); Potassium 4.2 mmol/L (3.5-5.1); Sodium 143 mmol/L (136-145)
[2025-04-22 14:49] LABS: Anion Gap 11 (5-15); Calcium 9.0 mg/dL (8.7-10.4); Carbon Dioxide 27 mmol/L (20-31)
[2025-04-22 14:54] LABS: BUN/Creatinine Ratio 13.8 (10.0-20.0); Blood Urea Nitrogen 19 mg/dL (9-23); Glucose 89 mg/dL (74-106)
[2025-04-22 14:55] LABS: Magnesium 2.1 mg/dL (1.6-2.6)
--- NOTE | 2025-04-22 15:26 | ED.PDOC ---
History of Present Illness HPI Comments This is an 80-year-old female who comes in with chief complaint of palpitations times approximately 1-1/2 hours. The patient comes from home when the paramedics noted that the patient has a heart rate between 120-140 upon their arrival. The patient has been seen here for something similar in the past. She states that she is now also having some chest pain which is substernal and she rates it as a 10/10. She denies any shortness a breath but is having some nausea. Upon arrival, the patient is currently in atrial fibrillation. She is able to give us her medical history at this time. Chief Complaint: Palpitations Time Seen by MD: 14:04 Primary Care Provider: unknown Reviewed Notes: Nurses Notes, Track Dresser Notes, Medications, Allergies (Allergies listed above) Allergies: Coded Allergies: Aspirin (Verified Allergy, Intermediate, 01/12/22) Acetaminophen (Verified Allergy, Unknown, 09/08/23) Caffeine (Verified Allergy, Unknown, 04/15/18) Hydrocodone (Verified Allergy, Unknown, 09/08/23) Morphine (Verified Allergy, Unknown, 09/08/23) Penicillins (Verified Allergy, Unknown, 04/15/18) Home Meds Active Scripts Amiodarone HCl (Amiodarone HCl) 200 Mg Tab, 200 MG PO Q12HR, #60 TAB Prov:KALEB BERTRAND MD 01/24/24 Metoprolol Tartrate (Lopressor) 25 Mg Tb, 25 MG PO BID, #60 TAB Prov:JD BERTRAND MD 09/09/23 Apixaban Base (ELIQUIS) 2.5 Mg Tab, 2.5 MG PO BID, #60 TAB Prov:KALEB BERTRAND MD 06/27/23 Reported Medications Amlodipine Besylate (Amlodipine Besylate) 5 Mg Tab, 1 TAB PO DAILY 08/18/23 Omeprazole (Gnp Omeprazole) 20 Mg Tab, 1 TAB PO DAILY, #90 TAB 1 Refill 03/25/18 Atorvastatin Calcium (ATORVASTATIN CALCIUM) 20 Mg Tab, 1 TAB PO DAILY, #30 TAB 5 Refills 03/25/18 Levodopa W/Carbidopa (Sinemet) 25 /100 Tab, 1 TAB PO BID for 30 Days, #60 TAB 03/25/18 Gabapentin (Gabapentin) 600 Mg Tab, 600 MG PO QID for 30 Days, MG 03/25/18 Information Source: Patient, Emergency Med Personnel Mode of Arrival: EMS Severity: Moderate Timing: Hours Duration: Since onset Prehospital treatment: 12 Lead EKG, Pigment Mixer, IVF, Oxygen Associated signs and symptoms The patient is complaining of the chest pain as well as palpitations Past Medical History PAST MEDICAL HISTORY: AFIB, CHF, CVA, High Lipids, HTN, [place], TIA Surgical History: Appendectomy, BTL, Pacemaker, PTCA, Tonsillectomy Surgical History (Other): Right knee surgery 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: 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 all MARKETING FINANCE SPECIALIST Hx Family History Family History: Unknown Social History Smoker: Non-Smoker Alcohol: Denies ETOH Use Drugs: Denies Drug Use Lives In: Home Constitutional: denies: chills, diaphoresis, fatigue, fever, malaise, sweats, weakness, others EENTM: denies: blurred vision, double vision, ear bleeding, ear discharge, ear drainage, ear pain, ear ringing, eye pain, eye redness, hearing loss, mouth pain, mouth swelling, nasal discharge, nose bleeding, nose congestion, nose pain, photophobia, tearing, throat pain, throat swelling, voice changes, others Respiratory: denies: cough, hemoptysis, orthopnea, SOB at rest, shortness of breath, SOB with excertion, stridor, wheezing, others Cardiovascular: reports: chest pain, palpitations; denies: dizzy spells, diaphoresis, Dyspnea on exertion, edema, irregular heart beat, left arm pain, lightheadedness, PND, syncope, others Gastrointestinal: reports: nausea; denies: abdomen distended, abdominal pain, blood streaked bowels, constipated, diarrhea, dysphagia, difficulty swallowing, hematemesis, melena, poor appetite, poor fluid intake, rectal bleeding, rectal pain, vomiting, others Genitourinary: denies: abnormal vagina bleeding, burning, dyspareunia, dysuria, flank pain, frequency, hematuria, incontinence, pain, , vagina discharge, urgency, others Neurological: denies: dizziness, fainting, headache, left sided numbness, left sided weakness, numbness, paresthesia, pre-existing deficit, right sided numbness, right sided weakness, seizure, speech problems, tingling, tremors, weakness, others Musculoskeletal: denies: back pain, gout, joint pain, joint swelling, muscle pain, muscle stiffness, neck pain, others Integumetry: denies: bruises, change in color, change in hair/nails, dryness, laceration, lesions, lumps, rash, wounds, others Allergic/Immunocompromised: denies: Difficulty Healing, Frequent Infections, Hives, Itching, others Hematologic/Lymphatic: denies: anemia, blood clots, easy bleeding, easy bruising, swollen glands, others Endocrine: denies: excessive hunger, excessive sweating, excessive thirst, excessive urination, flushing, intolerance to cold, intolerance to heat, unexplained weight gain, unexplained weight loss, others Psychiatric: denies: anxiety, bipolar disorder, depression, hopeless, panic disorder, schizophrenia, sleepless, suicidal, others Physical Exam General Appearance: Moderate Distress HEENT: Normal ENT Inspection, Pharynx Normal, TMs Normal Neck: Full Range of Motion, Non-Tender, Normal, Normal Inspection Respiratory: Chest Non-Tender, Lungs Clear, No Accessory Muscle Use, No Respiratory Distress, Normal Breath Sounds Cardiovascular: Irregular, No Edema, No JVD, No Murmur, No Gallop, Tachycardia Breast Exam: Deferred Gastrointestinal: No Organomegaly, Non Tender, No Pulsatile Mass, Normal Bowel Sounds, Soft Genitalia: Deferred Pelvic: Deferred Rectal: Deferred Extremities: No calf tenderness, Normal capillary refill, Normal inspection, Normal range of motion, Non-tender, No pedal edema Musculoskeletal : Apperance: Normal Neurologic: Alert, 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 Was a procedure done?: No EKG EKG : Pulse Rate (adult): 114 [place]: Normal Cardiac Rhythm: Afib Differential Dx Considerations may include: Atrial fibrillation with rapid response, generalized weakness, electrolyte imbalance X-Ray, Labs, Meds, VS Vital Signs Date Time Temp Pulse Resp B/P (MAP) Pulse Ox O2 Delivery O2 Flow Rate FiO2 04/22/25 15:26 114 04/22/25 14:50 114 04/22/25 13:53 123 Lab Test 04/22/25 15:20 04/22/25 14:28 Range/Units Troponin I High Sensitivity 69 *H 66 *H </=34 ng/L White Blood Count 3.4 L 4.4-10.8 10^3/uL Red Blood Count 4.30 4.0-5.20 10^6/uL Hemoglobin 11.8 L 12.2-16.2 g/dL Hematocrit 37.0 36.0-46.0 % Mean Corpuscular Volume 86.2 80.0-100.0 fL Mean Corpuscular Hemoglobin 27.5 L 28.0-32.0 pg Mean Corpuscular Hemoglobin Concent 31.9 L 32.0-36.0 g/dL Red Cell Distribution Width 13.1 11.8-14.3 % Platelet Count 165 140-450 10^3/uL Mean Platelet Volume 9.5 6.9-10.8 fL Neutrophils (%) (Auto) 52.5 37.0-80.0 % Lymphocytes (%) (Auto) 34.5 10.0-50.0 % Monocytes (%) (Auto) 11.6 0.0-12.0 % Eosinophils (%) (Auto) 0.4 0.0-7.0 % Basophils (%) (Auto) 1.0 0.0-2.0 % Neutrophils # (Auto) 1.8 1.6-8.6 10 ^3/uL Lymphocytes # (Auto) 1.2 0.4-5.4 10 ^3/uL Monocytes # (Auto) 0.4 0-1.3 10 ^3/uL Eosinophils # (Auto) 0 0-0.8 10 ^3/uL Basophils # (Auto) 0 0-0.2 10 ^3/uL Nucleated Red Blood Cells 0.1 % Sodium Level 143 136-145 mmol/L Potassium Level 4.2 3.5-5.1 mmol/L Chloride Level 105 98-107 mmol/L Carbon Dioxide Level 27 20-31 mmol/L Anion Gap 11 5-15 Blood Urea Nitrogen 19 9-23 mg/dL Creatinine 1.38 H 0.550-1.02 mg/dL Glomerular Filtration Rate Calc 39 >90 mL/min BUN/Creatinine Ratio 13.8 10.0-20.0 Serum Glucose 89 74-106 mg/dL Calcium Level 9.0 8.7-10.4 mg/dL Magnesium Level 2.1 1.6-2.6 mg/dL B-Type Natriuretic Peptide 581.97 0-100 pg/mL IV Hep-Lock was established The CBC and chemistry panel shows a creatinine of 1.38 The BNP is 181.97 The patient does have an elevated troponin level at 581.97 The patient was started on an amiodarone drip The patient was also given amiodarone 150 mg IV push A cardiology consult will be obtained The patient is being admitted. Images Reviewed?: Images reviewed and evaluated by me Time of 1ST Reevaluation: 15:24 Reevaluation 1ST: Unchanged Patient Education/Counseling: Diagnosis, Treatment, Prognosis Family Education/Counseling: No Family Present SEPSIS Sepsis Screen Physician Orders Electrocardigram (04/22/25 14:02) Electrocardigram (04/22/25 15:02) Electrocardigram (04/22/25 17:02) Chest Portable (04/22/25 14:12) He[place]ock Iv (04/22/25 14:12) Pigment Mixer (04/22/25 14:12) Blood Pressure (04/22/25 14:12) Pulse Oximetry (04/22/25 14:12) Urinalysis (04/22/25 14:12) Troponin-I Hs (04/22/25 17:12) Amiodarone 450mg/250ml Ae (Cordarone) (04/22/25 14:30) Vital Signs Date Time Temp Pulse Resp B/P (MAP) Pulse Ox O2 Delivery O2 Flow Rate FiO2 04/22/25 15:26 114 04/22/25 14:50 114 04/22/25 13:53 123 Laboratory Tests Test 04/22/25 14:28 White Blood Count 3.4 10^3/uL (4.4-10.8) L Departure 1 Departure Time of Disposition: 15:25 Impression: Primary Impression: Atrial fibrillation with RVR Additional Impression: Nausea Disposition: 09 ADMITTED INPATIENT Admit to: Tele Condition: Fair Critical Care Note Critical Care Time?: Yes (45 min-critical care time only) Stability Stability form required: Yes Unstable for transfer: Telemetry monitoring (Telemetry monitoring required), ED Physician Assesment (Clinical assesment) Heart Score Heart Score: Heart Score Response (Comments) Value History Moderate Suspicious 1 EKG Repolarization Disturb 1 Age >65 2 Risk Factors >3 or Hx ASHD 2 Troponin 1-2 x's Normal limit 1 Total 7 LAUREN MEYERS MD Apr 22, 2025 15:26
--- NOTE | 2025-04-22 15:35 | DVH ---
CHEST RADIOGRAPH INDICATION: cp TECHNIQUE: Single frontal view of the chest was obtained COMPARISON: XY CHEST XRAY 1 VIEW on DOS: 01/07/25, XY CHEST PORTABLE on DOS: 03/24/24, XY CHEST XRAY 1 VIEW on DOS: 01/24/24 FINDINGS: Lines and Tubes: None Lungs: No focal consolidation. Pleura: No effusion. No pneumothorax. Cardiomediastinal contours: Unremarkable Bones: No acute osseous abnormality. IMPRESSION: 1. No acute cardiopulmonary disease.
[2025-04-22 16:00] VITALS: PULSE 134; RESP 15; O2SAT 95
[2025-04-22] MEDS: AMIODARONE BOLUS KIT 100 ML IV ONE (16:00)
[2025-04-22 17:49] LABS: Urine Protein, UAD 1+ (Negative)
[2025-04-22] MEDS: ENOXAPARIN SOD 60 MG/0.6 ML SYRINGE SC SCH (18:19)
--- NOTE | 2025-04-22 18:31 | ECG ---
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
--- NOTE | 2025-04-22 18:32 | ECG ---
[facility] Test Date: 2025-04-22 Test Time: 16:41:56 Pat Name: DELIA TRUONG Department: ED Room: 0281T Gender: F Javascript Developer: CORINA : 1945 Requested By: LAUREN MEYERS Order Number: [id number] Reading MD: Geo Miller Measurements Intervals [place] Rate: 70 P: 244 AL: 194 QRS: 12 QRSD: 129 T: 183 QT: 474 QTc: 512 Interpretive Statements Atrial-ventricular dual-paced complexes No further analysis attempted due to paced rhythm Electronically Signed On 04-23-2025 20:11:16 PST by Geo Miller Please click the below link to view image of tracing.
[2025-04-22 19:25] VITALS: PULSE 60; RESP 18; O2SAT 94
--- NOTE | 2025-04-22 19:39 | DVHHP2 ---
History of Present Illness History of Present Illness This is an 80-year-old female with past medical history of hypertension, hyperlipidemia, hypertrophic cardiomyopathy, atrial fibrillation, diastolic heart failure, prior stroke, and an ICD. She developed sudden palpitations at home this morning and called EMS, who found her heart rate in the 140s. In the ED she was found to be in atrial fibrillation with RVR and was started on an amiodarone bolus followed by an infusion. she remained in AF but with ventricular pacing and a controlled rate in the 60s. She denies chest pain, dizziness, or syncope. Labs are overall stable except creatinine 1.38, mildly elevated troponin consistent with NSTEMI type 2, and BNP 581 suggesting mild acute heart failure physiology. Troponin elevation attributed to demand in the setting of AFib with RVR. PMHx: Hypertension, hyperlipidemia, hypertrophic cardiomyopathy, atrial fibrillation, diastolic heart failure, old stroke, Parkinson disease. PSH: ICD placement. Home Medications: Amiodarone, amlodipine, apixaban, atorvastatin, gabapentin, levodopa/carbidopa, metoprolol 25 mg, omeprazole. Allergies: Tylenol, aspirin, caffeine, hydrochlorothiazide, morphine, penicillins. Social History: Lives with her son. No smoking, alcohol, or drugs. ROS: Negative except for palpitations. Review of Systems Allergies: Coded Allergies: Aspirin (Verified Allergy, Intermediate, 01/12/22) Acetaminophen (Verified Allergy, Unknown, 09/08/23) Caffeine (Verified Allergy, Unknown, 04/15/18) Hydrocodone (Verified Allergy, Unknown, 09/08/23) Morphine (Verified Allergy, Unknown, 09/08/23) Penicillins (Verified Allergy, Unknown, 04/15/18) Medications Current Medications Medications Dose Ordered Sig/Nirmala Route Start Time Stop Time Status Last Admin Dose Admin Enoxaparin Sodium 60 mg DAILY@1800 SC 04/22/25 18:10 04/22/25 18:19 60 MG Carbidopa/Levodopa 1 tab BID PO 04/22/25 22:00 Clopidogrel Bisulfate 75 mg DAILY PO 04/23/25 10:00 Atorvastatin Calcium 20 mg HS PO 04/22/25 22:00 Metoprolol Succinate 25 mg DAILY PO 04/23/25 10:00 Exam Vital Signs Vital Signs Date Time Temp Pulse Resp B/P (MAP) Pulse Ox O2 Delivery O2 Flow Rate FiO2 04/22/25 18:00 60 15 125/62 (83) 96 04/22/25 17:32 98.2 98.2 04/22/25 16:00 Room Air* 0 21 Exam Normal general appearance, alert and oriented. Cardiovascular: ventricular-paced rhythm in the 60s, no murmurs. Lungs clear to auscultation. Abdomen soft and non-tender. No edema. Neuro intact and at baseline. Labs/Xrays Labs Test 04/22/25 17:13 04/22/25 17:07 04/22/25 14:28 Range/Units Magnesium Level 2.1 1.6-2.6 mg/dL Troponin I High Sensitivity 83 *H </=34 ng/L Urine Color Colorless Yellow Urine Clarity Clear Clear Urine pH 6.5 5.0-9.0 Urine Specific [place] 1.007 1.001-1.035 Urine Protein 1+ H Negative Urine Ketones Negative Negative Urine Blood Negative Negative /uL Urine Nitrite Negative Negative Urine Bilirubin Negative Negative Urine Urobilinogen Normal Negative mg/dL Urine Leukocyte Esterase Negative Negative /uL Urine RBC 1 0 - 4 /hpf Urine Microscopic WBC 1 0-5 /HPF Urine Squamous Epithelial Cells Few <5 /hpf Urine Bacteria None seen None Seen /hpf Urine Glucose Normal Normal mg/dL White Blood Count 3.4 L 4.4-10.8 10^3/uL Red Blood Count 4.30 4.0-5.20 10^6/uL Hemoglobin 11.8 L 12.2-16.2 g/dL Hematocrit 37.0 36.0-46.0 % Mean Corpuscular Volume 86.2 80.0-100.0 fL Mean Corpuscular Hemoglobin 27.5 L 28.0-32.0 pg Mean Corpuscular Hemoglobin Concent 31.9 L 32.0-36.0 g/dL Red Cell Distribution Width 13.1 11.8-14.3 % Platelet Count 165 140-450 10^3/uL Mean Platelet Volume 9.5 6.9-10.8 fL Neutrophils (%) (Auto) 52.5 37.0-80.0 % Lymphocytes (%) (Auto) 34.5 10.0-50.0 % Monocytes (%) (Auto) 11.6 0.0-12.0 % Eosinophils (%) (Auto) 0.4 0.0-7.0 % Basophils (%) (Auto) 1.0 0.0-2.0 % Neutrophils # (Auto) 1.8 1.6-8.6 10 ^3/uL Lymphocytes # (Auto) 1.2 0.4-5.4 10 ^3/uL Monocytes # (Auto) 0.4 0-1.3 10 ^3/uL Eosinophils # (Auto) 0 0-0.8 10 ^3/uL Basophils # (Auto) 0 0-0.2 10 ^3/uL Nucleated Red Blood Cells 0.1 % Sodium Level 143 136-145 mmol/L Potassium Level 4.2 3.5-5.1 mmol/L Chloride Level 105 98-107 mmol/L Carbon Dioxide Level 27 20-31 mmol/L Anion Gap 11 5-15 Blood Urea Nitrogen 19 9-23 mg/dL Creatinine 1.38 H 0.550-1.02 mg/dL Glomerular Filtration Rate Calc 39 >90 mL/min BUN/Creatinine Ratio 13.8 10.0-20.0 Serum Glucose 89 74-106 mg/dL Calcium Level 9.0 8.7-10.4 mg/dL B-Type Natriuretic Peptide 581.97 0-100 pg/mL SEPSIS Sepsis Screen Date sepsis recognized/suspect: Apr 22, 2025 Time Sepsis recognized/suspect: 1600 Recent Procedure: No On Antibiotic Therapy: No Respiratory Rate >20: No Heart Rate >90: Yes Temp<36 C (96.8 F) or >38.3 C: No SBP <90 or MAP <65 mmHG: No New Acute Mental Status Change: No Is the patient on CPAP, BIPAP,: No Physician Orders Electrocardigram (04/22/25 17:02) Chest Portable (04/22/25 14:12) Heplock Iv (04/22/25 14:12) Hotel Staff Member (04/22/25 14:12) Blood Pressure (04/22/25 14:12) Pulse Oximetry (04/22/25 14:12) Amiodarone 450mg/250ml Ae (Cordarone) (04/22/25 14:30) Admit (04/22/25 17:23) Oxygen By Nasal Cannula (04/22/25 17:23) Stat Ekg For Chest Pain (04/22/25 17:23) Notify Of Changes From Base (04/22/25 17:23) Bottle Capper For 24 Hours (04/22/25 17:23) Emergency Dysrhythmia Protocol (04/22/25 17:23) Rhythm Strips Once Every Shift (04/22/25 17:23) Carbidopa W Levodopa 25/100mg (Sinemet 2 (04/22/25 22:00) * Cardiology Consult (04/22/25 17:52) Clopidogrel Bisulfate (Plavix) (04/23/25 10:00) Atorvastatin (Lipitor) (04/22/25 22:00) Metoprolol Xl Succinate (Toprol Xl) (04/23/25 10:00) Enoxaparin Sodium (Lovenox) (04/22/25 18:10) Cardiac Diet-2gna,Lofat,Lochol (04/22/25 Dinner) Vital Signs Date Time Temp Pulse Resp B/P (MAP) Pulse Ox O2 Delivery O2 Flow Rate FiO2 04/22/25 18:00 60 15 125/62 (83) 96 04/22/25 17:32 98.2 124 18 131/69 98 98.2 04/22/25 16:51 60 17 124/68 (86) 95 04/22/25 16:41 70 04/22/25 16:00 134 15 95 Room Air* 0 21 04/22/25 16:00 134 15 108/73 (85) 95 04/22/25 15:26 114 04/22/25 14:50 114 04/22/25 14:30 98.3 106 19 101/65 (77) 95 98.3 04/22/25 13:53 123 Laboratory Tests Test 04/22/25 14:28 White Blood Count 3.4 10^3/uL (4.4-10.8) L Medications Medications Dose Ordered Sig/Nirmala Route Start Time Stop Time Status Last Admin Dose Admin Amiodarone HCl 100 ml @ 600 mls/hr ONCE ONCE IV 04/22/25 14:15 04/22/25 14:24 DC 04/22/25 16:00 600 MLS/HR Amiodarone HCl 250 ml @ 33.33 mls/ hr [id number] ONCE IV 04/22/25 14:30 04/22/25 22:00 04/22/25 16:31 33.33 MLS/HR Enoxaparin Sodium 60 mg DAILY@1800 SC 04/22/25 18:10 04/22/25 18:19 60 MG Assessment/Plan Assessment/Plan #Atrial fibrillation with RVR She presented with AFib with RVR likely triggered by underlying hypertrophic cardiomyopathy and physiologic stress. Continue amiodarone infusion for rate control and plan to transition to oral amiodarone once stable; therapeutic anticoagulation Telemetry monitoring and cardiology evaluation. #Hypertrophic cardiomyopathy Chronic severe concentric hypertrophy with preserved EF on prior echo. Continue metoprolol and avoid dehydration or hypotension. #Acute on chronic diastolic heart failure Patient has chronic diastolic dysfunction with BNP 581 suggesting mild acute decompensation likely driven by tachyarrhythmia. Hold diuretics for now due to concern for lowering blood pressure; reassess volume status and consider gentle diuresis if clinically indicated. #NSTEMI type 2 Troponin is mildly elevated in the setting of tachyarrhythmia, consistent with demand ischemia. Manage by treating the arrhythmia and continue cardiac monitoring without initiating ACS protocol. #Chronic kidney disease Creatinine is 1.38, possibly baseline or mild SIERRA from rate-related hypoperfusion. Monitor renal function, avoid nephrotoxins, and dose-adjust medications as needed. #Parkinson disease Chronic stable condition. Continue home levodopa/carbidopa. #Hypertension Currently controlled. Case discussed with Dr Cooley Full code Plan discussed with: Patient, Other (rn) My Orders Orders - DOMINGA BRODY Procedure Category Date Status Time Admit ADMIT 04/22/25 Transmitted 17:23 Oxygen By Nasal RT 04/22/25 Transmitted Cannula 17:23 Stat Ekg For Chest [facility] 04/22/25 In Process Pain 17:23 Notify Of Changes [facility] 04/22/25 In Process From Base 17:23 Bottle Capper For [facility] 04/22/25 In Process 24 Hours 17:23 Emergency Dysrhythmia [facility] 04/22/25 In Process Protocol 17:23 Rhythm Strips Once [facility] 04/22/25 In Process Every Shift 17:23 Carbidopa W Levodopa PHA 04/22/25 In Process 25/100mg (Sinemet 2 22:00 * Cardiology Consult CONS 04/22/25 Transmitted 17:52 Clopidogrel Bisulfate PHA 04/23/25 In Process (Plavix) 10:00 Atorvastatin (Lipitor) PHA 04/22/25 In Process 22:00 Metoprolol Xl PHA 04/23/25 In Process Succinate (Toprol Xl) 10:00 Enoxaparin Sodium PHA 04/22/25 In Process (Lovenox) 18:10 Cardiac DIET 04/22/25 Transmitted Diet-2gna,Lofat,Lochol Dinner Date of Service: Apr 22, 2025 Billing Provider: OKSANA COOLEY MD Common Visit Codes: [id number] INP/OBS CARE (HIGH) Secondary Visit Codes: [id number] CARE PLAN 30 MINUTES DOMINGA BRODY RESIDENT Apr 22, 2025 19:39
[2025-04-22] MEDS: AMIODARONE HCL 200 MG TAB PO SCH (22:15)
[2025-04-22] MEDS: ATORVASTATIN 20 MG TAB PO SCH (22:16)
[2025-04-22] MEDS: CARBIDOPA W LEVODOPA 25/100mg TABLET PO SCH (22:16)
[2025-04-23] VITALS (7 sets, daily range): BP systolic 133–146; BP diastolic 67–81; PULSE 59–73; RESP 16–19; TEMP 97.9–98.3; O2SAT 96–98
[2025-04-23] MEDS ORDERED: APIX5TAB PO (03:58)
[2025-04-23] MEDS ORDERED: DISO100C4 PO (03:58)
[2025-04-23] MEDS ORDERED: TRAM50TA2 PO (03:58)
[2025-04-23] MEDS ORDERED: CLOP75TA28 PO (03:58)
[2025-04-23] MEDS ORDERED: MELA3TAB27 PO (04:45)
[2025-04-23 06:23] LABS: Albumin 3.6 g/dL (3.2-4.8); Anion Gap 11 (5-15); BUN/Creatinine Ratio 14.9 (10.0-20.0); Blood Urea Nitrogen 17 mg/dL (9-23); Calcium 8.9 mg/dL (8.7-10.4); Carbon Dioxide 24 mmol/L (20-31); Chloride 105 mmol/L (98-107); Glucose 81 mg/dL (74-106); Potassium 3.6 mmol/L (3.5-5.1); Sodium 140 mmol/L (136-145); Total Protein 7.5 g/dL (5.7-8.2)
[2025-04-23 06:24] LABS: Bilirubin, Total 0.4 mg/dL (0.2-1.0)
[2025-04-23 06:25] LABS: Hematocrit 34.0 % (36.0-46.0); Hemoglobin 11.1 g/dL (12.2-16.2); Mean Corpuscular Hemoglobin 27.9 pg (28.0-32.0); Mean Corpuscular Volume 85.2 fL (80.0-100.0); Nucleated Red Blood Cells % 0.3 %
[2025-04-23 06:26] LABS: Alanine Aminotransferase < 9 U/L (7-40); Alkaline Phosphatase 136 U/L (46-116)
[2025-04-23 06:27] LABS: INR 1.08 (0.9-1.15); Partial Thromboplastin Time 37.0 SEC (24.5-34.5); Prothrombin Time 11.4 sec (9.3-11.8)
--- NOTE | 2025-04-23 08:59 | DVHINCON2 ---
Date of service: Apr 23, 2025 History of Present Illness HPI Patient is a 80-year-old female who presented to the hospital for episode of palpitation which was followed by some chest discomfort. Cardiology is involved for cardiac aspects of care. Patient is known to our practice from outside and before. Last visit to our office was in April 2024. Patient herself is poor historian and does not recall the detailed information about her medications. Information about medication was obtained by calling and communicating with patient's son. It seems that the patient does take disopyramide once or twice daily inconsistently. As per son, the patient was in [facility]. Patient does have [facility] ICD. Patient denies any recent episode of shock. Home Meds Active Scripts Amiodarone HCl (Amiodarone HCl) 200 Mg Tab, 200 MG PO Q12HR, #60 TAB Prov:KALEB BERTRAND MD 01/24/24 Metoprolol Tartrate (Lopressor) 25 Mg Tb, 25 MG PO BID, #60 TAB Prov:JD BERTRAND MD 09/09/23 Apixaban Base (ELIQUIS) 2.5 Mg Tab, 2.5 MG PO BID, #60 TAB Prov:KALEB BERTRAND MD 06/27/23 Reported Medications Melatonin (KP MELATONIN) 3 Mg Tab, 1 TAB PO QPM, #30 TAB 04/23/25 Tramadol Hcl (Tramadol Hcl) 50 Mg Tab, 50 MG PO PRN for pain, TAB 04/23/25 Clopidogrel Bisulfate (Plavix) 75 Mg Tab, 75 MG PO DAILY, TAB 04/23/25 Apixaban Base (ELIQUIS) 5 Mg Tab, 5 MG PO DAILY, TAB 04/23/25 Disopyramide Phosphate (Disopyramide Phosphate) 100 Mg Cap, 100 MG PO DAILY, CAP 04/23/25 Amlodipine Besylate (Amlodipine Besylate) 5 Mg Tab, 1 TAB PO DAILY 08/18/23 Omeprazole (Gnp Omeprazole) 20 Mg Tab, 1 TAB PO DAILY, #90 TAB 1 Refill 03/25/18 Atorvastatin Calcium (ATORVASTATIN CALCIUM) 20 Mg Tab, 1 TAB PO DAILY, #30 TAB 5 Refills 03/25/18 Levodopa W/Carbidopa (Sinemet) 25 /100 Tab, 1 TAB PO BID for 30 Days, #60 TAB 03/25/18 Gabapentin (Gabapentin) 600 Mg Tab, 600 MG PO QID for 30 Days, MG 03/25/18 Past Medical History Others Past medical history includes hypertension, hyperlipidemia, COPD, diastolic heart failure, peripheral neuropathy, dementia, hypertrophic cardiomyopathy, status post ICD ([employer]), paroxysmal A-fib, CVA/TIA, parkinsonism, SVT, old history of CVA, restless leg syndrome, wheelchair-bound, status post left total knee replacement and old history of infection after knee replacement. She also has had appendectomy/tonsillectomy/bilateral tubal ligation. Patient Family History: Cardiovascular disease G8 MOTHER FH: congenital heart problem SON FHx: restless leg syndrome SON SON Hypertension G8 MOTHER Smoker: No Hx (Negative) Alocohol: None Drugs: None Lives with: With family Review of Systems Constitutional: No symptom reported Ears, Nose, & Throat: No symptom reported Cardiovascular: Palpitations All Other Systems 14 point review of system was performed. Relevant findings as per above and as per HPI. Otherwise negative. H&P Exam Vital Signs Vital Signs Date Time Temp Pulse Resp B/P (MAP) Pulse Ox O2 Delivery O2 Flow Rate FiO2 04/23/25 08:00 60 04/23/25 03:11 16 98 Room Air* 0 21 04/23/25 03:11 97.9 141/67 (91) 97.9 General Appeara: Well developed Head Exam: Normal inspection Neck Exam: Normal inspection Eye Exam: bilateral eye PERRL Mouth: Normal Inspection Pulmonary/Respiratory: Lungs clear Cardiovascular/Chest: Regular rate, Systolic murmur Peripheral Pulses: 2+ carotid (R), 2+ carotid (L), 2+ femoral (R), 2+ femoral (L) Abdominal Exam: Normal bowel sounds, Soft Neuro/Mental St: Alert, Oriented Appearance: Appropriate appearance Eye contact/ Speech: Cooperative Labs/Xrays Labs Test 04/23/25 04:47 04/22/25 17:13 04/22/25 17:07 04/22/25 14:28 Range/Units White Blood Count 3.4 L 4.4-10.8 10^3/uL Red Blood Count 3.99 L 4.0-5.20 10^6/uL Hemoglobin 11.1 L 12.2-16.2 g/dL Hematocrit 34.0 L 36.0-46.0 % Mean Corpuscular Volume 85.2 80.0-100.0 fL Mean Corpuscular Hemoglobin 27.9 L 28.0-32.0 pg Mean Corpuscular Hemoglobin Concent 32.7 32.0-36.0 g/dL Red Cell Distribution Width 12.9 11.8-14.3 % Platelet Count 144 140-450 10^3/uL Mean Platelet Volume 9.9 6.9-10.8 fL Neutrophils (%) (Auto) 47.9 37.0-80.0 % Lymphocytes (%) (Auto) 40.4 10.0-50.0 % Monocytes (%) (Auto) 10.3 0.0-12.0 % Eosinophils (%) (Auto) 0.6 0.0-7.0 % Basophils (%) (Auto) 0.8 0.0-2.0 % Neutrophils # (Auto) 1.6 1.6-8.6 10 ^3/uL Lymphocytes # (Auto) 1.4 0.4-5.4 10 ^3/uL Monocytes # (Auto) 0.3 0-1.3 10 ^3/uL Eosinophils # (Auto) 0 0-0.8 10 ^3/uL Basophils # (Auto) 0 0-0.2 10 ^3/uL Nucleated Red Blood Cells 0.3 % Prothrombin Time 11.4 9.3-11.8 sec Prothrombin Time INR 1.08 0.9-1.15 Activated Partial Thromboplast Time 37.0 H 24.5-34.5 SEC Sodium Level 140 136-145 mmol/L Potassium Level 3.6 3.5-5.1 mmol/L Chloride Level 105 98-107 mmol/L Carbon Dioxide Level 24 20-31 mmol/L Anion Gap 11 5-15 Blood Urea Nitrogen 17 9-23 mg/dL Creatinine 1.14 H 0.550-1.02 mg/dL Glomerular Filtration Rate Calc 49 >90 mL/min BUN/Creatinine Ratio 14.9 10.0-20.0 Serum Glucose 81 74-106 mg/dL Calcium Level 8.9 8.7-10.4 mg/dL Total Bilirubin 0.4 0.2-1.0 mg/dL Aspartate Amino Transferase (AST) 38 13-40 U/L Alanine Aminotransferase (ALT) < 9 7-40 U/L Alkaline Phosphatase 136 H 46-116 U/L Total Protein 7.5 5.7-8.2 g/dL Albumin 3.6 3.2-4.8 g/dL Thyroid Stimulating Hormone (TSH) 1.82 0.55-4.78 uIU/mL Magnesium Level 2.1 1.6-2.6 mg/dL Troponin I High Sensitivity 83 *H </=34 ng/L Urine Color Colorless Yellow Urine Clarity Clear Clear Urine pH 6.5 5.0-9.0 Urine Specific [place] 1.007 1.001-1.035 Urine Protein 1+ H Negative Urine Ketones Negative Negative Urine Blood Negative Negative /uL Urine Nitrite Negative Negative Urine Bilirubin Negative Negative Urine Urobilinogen Normal Negative mg/dL Urine Leukocyte Esterase Negative Negative /uL Urine RBC 1 0 - 4 /hpf Urine Microscopic WBC 1 0-5 /HPF Urine Squamous Epithelial Cells Few <5 /hpf Urine Bacteria None seen None Seen /hpf Urine Glucose Normal Normal mg/dL B-Type Natriuretic Peptide 581.97 0-100 pg/mL Assessment/Plan Plan Patient is a 80-year-old female who presented to the hospital for episode of palpitation which was followed by some chest discomfort. Cardiology is involved for cardiac aspects of care. Patient is known to our practice from outside and before. Last visit to our office was in April 2024. Patient herself is poor historian and does not recall the detailed information about her medications. Information about medication was obtained by calling and communicating with patient's son. Patient does have history of hypertrophic cardiomyopathy/diastolic heart failure and paroxysmal AFib. It seems that the patient does take disopyramide once or twice daily inconsistently. As per son, the patient was in [facility]. Patient does have [facility] ICD. Patient denies any recent episode of shock. Not in acute distress. No JVD. Mucosa is pink and wet. No carotid bruit. No goiter. Lungs are clear to auscultation. Not using accessory muscles of breathing. Cardiac: Regular, no thrill/gallop. Systolic murmur 3/6 in the apex is heard. Abdomen is soft. Bowel sound is positive. There is no gross mass/hepatomegaly. Extremities do not reveal edema. Dorsalis pedis is 2+ bilateral. There is no gross lateralized neurologic deficit. Past medical history includes hypertension, hyperlipidemia, COPD, diastolic heart failure, peripheral neuropathy, dementia, hypertrophic cardiomyopathy, status post ICD ([facility]), paroxysmal A-fib, CVA/TIA, parkinsonism, SVT, old history of CVA, restless leg syndrome, wheelchair-bound, status post left total knee replacement and old history of infection after knee replacement. She also has had appendectomy/tonsillectomy/bilateral tubal ligation. Echocardiogram of June 2022 (performed the office) had revealed ejection fraction more than 70%, hyperdynamic left ventricle, pseudo normal LV filling, moderate to severe MR/TR, consistent with hypertrophic cardiomyopathy and right ventricular systolic pressure of 75 mmHg. Echocardiogram of September 05, 2022 (performed in [facility]) at reported ejection fraction of 60%, severe concentric left ventricular hypertrophy and left atrial enlargement. Echocardiogram on June 27, 2023 revealed severe concentric left ventricular hypertrophy, LVEF of 65 to 70%, increased EDP, hypertrophic cardiomyopathy, dilated left atrium, trace AI, moderate MR (posterior jet), mild to moderate TR, mild pulmonary valve insufficiency and right ventricular systolic pressure of 38 mmHg Echocardiogram of January 24, 2024 (performed in [facility]) had reported ejection fraction of 60%, severe concentric left ventricular hypertrophy, consistent with hypertrophic cardiomyopathy, [id number] MR and left atrial enlargement Echocardiogram of March 25, 2024 had revealed LVEF of 60%, severe concentric left ventricular hypertrophy, consistent with hypertrophic cardiomyopathy, moderate MR/TR and right ventricular systolic pressure of 60 mm Hg Left heart catheterization of September 06, 2022 had revealed nonobstructive coronary artery disease (images reviewed). Creatinine: 1.38 - 1.14 Potassium: 4.2 - 3.6 TSH: 1.82 BNP: 581.97 Troponin (high sensitive): 66 - 69 - 83 Chest x-ray revealed: IMPRESSION: 1. No acute cardiopulmonary disease. EKG revealed atrial fibrillation with RVR Repeat EKG revealed paced rhythm Tele reveals sinus rhythm with occasions of NSVT Patient is a 80-year-old female who presented with palpitation which was followed with some chest discomfort. She was found to have atrial fibrillation with RVR. Does have baseline history of hypertrophic cardiomyopathy with history of paroxysmal AFib. As outpatient, the patient is kept on disopyramide and Eliquis. It seems that patient was taking disopyramide not consistently which could have contributed to the clinical picture. Last visit by us in the office was April 2024. Does have [facility] ICD. Recognizing history of paroxysmal AFib and comorbidities, CHADS-VASc score is elevated and long-term full anticoagulation is advised (patient is usually kept on Eliquis as outpatient). Minimally flat and elevated troponin in a patient with hypertrophic cardiomyopathy, most likely represents demand ischemia. Recog nizing the findings of left heart catheterization of 2022, repeat ischemic workup is not indicated at this point. Atrial fibrillation with RVR Palpitation Chest pain, atypical Hypertrophic cardiomyopathy Paroxysmal A-fib Tachyarrhythmia Diastolic heart failure Hypertension Hyperlipidemia Old history of CVA Presence of ICD ([facility]) Cardiac suggestion for management: Manage on telemetry Follow-up electrolytes and kidney function test. Keep potassium above 4 and magnesium above 2 Long-term full anticoagulation is advised. On Eliquis as outpatient Disopyramide: 100 mg twice daily is advised at this point. You can hold/stop amiodarone Echocardiogram Interrogation of ICD ([facility]) is advised Avoid vasodilators Further evaluation and management depends on the above and clinical course A total of 75 minutes was spent reviewing the patient record, examining the patient, making a diagnostic and therapeutic plan, discussing this plan with medical personnel, following up on diagnostic studies and following the patient for clinical stability excluding any and all procedures. At least 50% of this time was spent in direct, [id number] contact. Thank you for allowing me to participate in this patient's care. Further recommendations will depend on patient's clinical course. Please do not hesitate to contact me if you have any questions or concerns. This medical document was created using electronic medical record system with [employer] computerized dictation system. Although this document has been carefully reviewed, there may still be some phonetic and typographical errors. These areas are purely typographical due to the imperfection of the software programs, and do not reflect any compromise in the patient's medical care. Plan discussed with: Patient, Other (nurse) MARIA ESTHER NASH MD Apr 23, 2025 08:59
[2025-04-23] MEDS: AMIODARONE HCL 200 MG TAB PO SCH (10:00)
[2025-04-23] MEDS ORDERED: ENOXAPARIN SOD 60 MG/0.6 ML SYRINGE SC SCH (10:00)
[2025-04-23] MEDS ORDERED: APIXABAN 5 MG TAB PO SCH (10:00)
[2025-04-23] MEDS: CLOPIDOGREL BISULFATE 75 MG TAB PO SCH (10:01)
[2025-04-23] MEDS: METOPROLOL SUCCINATE XL 50 MG TAB PO SCH (10:01)
[2025-04-23] MEDS: PANTOPRAZOLE 40 MG TAB PO SCH (10:01)
[2025-04-23 14:19] LABS: Amphetamine Screen, Urine Neg (NEGATIVE); Barbiturate Scree,Urine Neg (NEGATIVE); Benzodiazephine Screen, Urine Neg (NEGATIVE); Cannabinoid Screen, Urine Neg (NEGATIVE); Cocaine Screen, Urine Neg (NEGATIVE); Opiate Scree,Urine Neg (NEGATIVE); Phencyclidine Screen, Urine Neg (NEGATIVE)
--- NOTE | 2025-04-23 15:36 | DVHPNRES ---
Progress Note Date Seen: Apr 23, 2025 Resident Creating Document: ERICA SANTAMARIA RESIDENT Medical Necessity Reason Pt with a Central, PICC or Fol: No Subjective Review of Systems This is an 80-year-old female with past medical history of hypertension, hyperlipidemia, hypertrophic cardiomyopathy, atrial fibrillation on Eliquis, history of CVA x2, HFpEF, ICD, Parkinson's disease. She developed sudden palpitations at home this morning and called EMS, who found her heart rate in the 140s. In the ED she was found to be in atrial fibrillation with RVR and was started on an amiodarone bolus followed by an infusion. she remained in AF but with ventricular pacing and a controlled rate in the 60s. She denies chest pain, dizziness, or syncope. Initial lab workup revealed leukopenia with a WBC 3.4, mild anemia with a hemoglobin 11.8, creatinine 1.38, mildly elevated troponin 66> 69> 83 consistent with NSTEMI type 2, and BNP 581 suggesting mild acute heart failure physiology. Troponin elevation attributed to demand in the setting of AFib with RVR. At the ER patient had infusion of amiodarone followed by oral amiodarone. PMHx: Hypertension, hyperlipidemia, hypertrophic cardiomyopathy, atrial fibrillation, diastolic heart failure, old stroke, Parkinson disease. PSH: ICD placement. Home Medications: Amiodarone, amlodipine, apixaban, atorvastatin, gabapentin, levodopa/carbidopa, metoprolol 25 mg, omeprazole. Allergies: Tylenol, aspirin, caffeine, hydrochlorothiazide, morphine, penicillins. Social History: Lives with her son. No smoking, alcohol, or drugs. ROS Cardiovascular- deny acute chest pain or shortness of breath or cough or palpitation Respiratory denies cough or short of breath or wheezing Gastrointestinal- denies any rectal bleeding, nausea or vomiting Musculoskeletal-denies acute joint swelling or tenderness or redness Neurological- denies acute dysarthria, dysphagia, change in vision Psychiatry- denies depression or SI or HI Skin- denies acute rash or purpura Patient was seen today at bedside, labs and chart reviewed. Denied any palpitation or chest pain no shortness of breath today Patient was seen by Cardiology, recommended to discontinued amiodarone, ordered disopyramide 100 mg p.o. b.i.d. Discontinued Lovenox, started patient on home Eliquis 5 mg p.o. b.i.d. Ordered echo 2D Spoke to patient's son Reid [phone] at bedside, discussed patient's plan of care, answered questions Objective vital signs Vital Sign Date Time Temp Pulse Resp B/P (MAP) Pulse Ox O2 Delivery O2 Flow Rate FiO2 04/23/25 13:00 98.2 60 16 135/73 (93) 98 98.2 04/23/25 08:00 Room Air* 0 21 Total Intake and Output 04/22/25 04/22/25 04/23/25 15:00 23:00 07:00 Intake Total 196.66 ml 0 ml Balance 196.66 ml 0 ml medications Current Medications Medications Dose Ordered Sig/Nirmala Route Start Time Stop Time Status Last Admin Dose Admin Carbidopa/Levodopa 1 tab BID PO 04/22/25 22:00 04/23/25 10:01 1 TAB Clopidogrel Bisulfate 75 mg DAILY PO 04/23/25 10:00 04/23/25 10:01 75 MG Atorvastatin Calcium 20 mg HS PO 04/22/25 22:00 04/22/25 22:16 20 MG Metoprolol Succinate 25 mg DAILY PO 04/23/25 10:00 04/23/25 10:01 25 MG Pantoprazole Sodium 40 mg DAILY@0600 PO 04/23/25 07:45 04/23/25 10:01 40 MG Amiodarone HCl 100 mg Q12HR PO 04/23/25 10:00 Apixaban 2.5 mg BID PO 04/23/25 22:00 Patient Own Medication 100 mg DAILY PO 04/23/25 10:00 04/23/25 10:00 100 MG Examination General examination- HEENT- PEERLA, no acute nasal discharge Cardiovascular- S1-S2 audible, rate and rhythm regular, systolic murmur Respiratory- CTAB, no wheeze or rhonchi Gastrointestinal-nontender, bowel sound+. Nondistended Musculoskeletal-no acute joint swelling or tenderness or redness Lower extremity- no leg edema Neurological- cranial nerves intact, no acute dysarthria or dysphagia Psychiatry- denies depression or SI or HI Skin- no acute rash or purpura laboratory and microbiology Laboratory Tests 04/23/25 04:47 Test 04/23/25 04:47 Range/Units Serum Glucose 81 74-106 mg/dL Problem List/Assessment/Plan Problem List/Assessment/Plan Assessment and plan #Atrial fibrillation with RVR #Hypertrophic cardiomyopathy, patient has a ICD -EKG atrial fibrillation with a rapid ventricular rate, now rate controlled -continue disopyramide 100 mg p.o. b.i.d. -continue Eliquis 5 mg p.o. b.i.d. -restarted home medication metoprolol 25 mg p.o. daily Pending echo 2D #Acute on chronic diastolic heart failure -patient is seen by Cardiology -continue current treatment # SIERRA on CKD stage IIIA likely due to VMN -avoid dehydration and nephrotoxic drugs #NSTEMI type 2 likely due to demand lead ischemia -continue current #Chronic kidney disease Creatinine is 1.38, possibly baseline or mild SIERRA from rate-related hypoperfusion. Monitor renal function, avoid nephrotoxins, and dose-adjust medications as needed. #Parkinson disease Chronic stable condition. Continue home levodopa/carbidopa. #Hypertension Currently controlled. -resumed home medication metoprolol # vitamin-D deficiency -continue vitamin-D supplement as prescribed Goals of care, Code status full code ; discussed with >15 minutes PUD prophylaxis: Pantoprazole DVT prophylaxis: Eliquis Plan discussed with Dr. Cooley , nursing staff, son Total time spent on patient evaluation, chart review, assessment and plan, discussion discussion >35 minutes Plan discussed with: Patient, Son, Other (RN) My Orders My Orders Orders - ERICA SANTAMARIA Procedure Category Date Status Time Pantoprazole Tablet PHA 04/23/25 In Process (Protonix Tablet) 07:45 Amiodarone Tablet PHA 04/23/25 In Process (Cordarone Tablet) 10:00 (Nf) Disopyramide PHA 04/23/25 In Process Phosphate 10:00 Apixaban (Eliquis) PHA 04/23/25 In Process 22:00 Visit Coding STANDARD RES Billing Provider: OKSANA COOLEY MD Date of Service if different f: Apr 23, 2025 Common Visit Codes: [id number] INP/OBS CARE(HIGH) ERICA SANTAMARIA Apr 23, 2025 15:36
[2025-04-23] MEDS: ERGOCALCIFEROL 50,000 UNIT(1.25MG) CAP PO SCH (17:22)
[2025-04-23] MEDS: APIXABAN 2.5 MG TAB PO SCH (21:33)
[2025-04-23] MEDS ORDERED: ERGOCALCIFEROL 50,000 UNIT(1.25MG) CAP PO SCH (22:45)
[2025-04-24 01:00] VITALS: BP 142/76; PULSE 60; RESP 17; TEMP 98.1; O2SAT 97
[2025-04-24 05:00] VITALS: BP 137/61; PULSE 60; RESP 17; TEMP 97.9; O2SAT 97
[2025-04-24 08:00] VITALS: PULSE 60; RESP 16; O2SAT 98
--- NOTE | 2025-04-24 08:01 | DVHSR ---
APPROVED REPORT EXAM: Two-dimensional and M-mode echocardiogram with Doppler and color Doppler. Blood Pressure: 141/67 mmHg INDICATION HF/ ?MS RISK FACTORS Height: 60, Weight: 130 DIMENSIONS LVDd 3.5 (3.8-5.7cm) LA (2D) 5.0 (1.9-4.0cm) Aortic Root 3.3 (2.0-3.7cm) LVDs 2.2 (2.5-4.0cm) LA (MM) (1.9-4.0cm) Aortic Cusp Exc 1.5 (1.5-2.0cm) EF (%) 70.0 (55-70%) Rt. Atrium 3.6 (1.9-4.0cm) Asc. Aorta cm Mitral Valve Mitral Mitral Stenosis E wave 0.43m/s MV Mean GR. mmHg A wave 0.78m/s MV Peak GR. 113mmHg E/A ratio 0.6 2D MVA cm2 DECEL Time 208ms PRESS 1/2 Time ms Aortic Valve Aortic Valve Aortic Stenosis V1 1.40m/s AO Mean GR. 4mmHg V2 1.55m/s AO Peak GR. 10mmHg LVOT Diameter 1.2 (1.8-2.4cm) Doppler KATHY 1.02cm2 AI P 1/2 Time 739.93ms Pulmonic Valve V2 1.25m/s Tricuspid Valve TR Velocity 2.44m/s RVSP 29mmHg Conclusion Left ventricle: Severe concentric left ventricular hypertrophy was seen. LVEF was more than 75%. Left ventricular systolic function was hyperdynamic. There was no gross wall motion abnormality. Abnormal relaxation of left ventricle diastolic function was observed. Right ventricle was normal-sized with normal systolic function. Left atrium was significantly dilated. Right atrium was normal-sized. Pacing wire was seen in right-sided chambers. Aortic valve: Aortic valve was trileaflet. There was no aortic stenosis. Mild aortic insufficiency was sitting. Mild mitral regurgitation was seen. Mild tricuspid regurgitation was seen. Mild pulmonary valve insufficiency was seen. Right ventricular systolic pressure was assessed at 30 mm Hg. There was no pericardial effusion. IVC was normal-sized with normal respiratory variation.
--- NOTE | 2025-04-24 08:03 | DVHPN2 ---
Progress Note - Dictate Date Seen: Apr 24, 2025 Medical Necessity Reason Pt with a Central, PICC or Fol: No vital signs Vital Sign Date Time Temp Pulse Resp B/P (MAP) Pulse Ox O2 Delivery O2 Flow Rate FiO2 04/24/25 05:00 97.9 60 17 137/61 (86) 97 97.9 04/23/25 20:00 Room Air* 0 21 Total Intake and Output 04/23/25 04/23/25 04/24/25 15:00 23:00 07:00 Intake Total 575 ml 600 ml Balance 575 ml 600 ml medications Current Medications Medications Dose Ordered Sig/Nirmala Route Start Time Stop Time Status Last Admin Dose Admin Carbidopa/Levodopa 1 tab BID PO 04/22/25 22:00 04/23/25 21:33 1 TAB Clopidogrel Bisulfate 75 mg DAILY PO 04/23/25 10:00 04/23/25 10:01 75 MG Atorvastatin Calcium 20 mg HS PO 04/22/25 22:00 04/23/25 21:33 20 MG Metoprolol Succinate 25 mg DAILY PO 04/23/25 10:00 04/23/25 10:01 25 MG Pantoprazole Sodium 40 mg DAILY@0600 PO 04/23/25 07:45 04/24/25 05:44 40 MG Apixaban 2.5 mg BID PO 04/23/25 22:00 04/23/25 21:33 2.5 MG Patient Own Medication 100 mg DAILY PO 04/23/25 10:00 04/23/25 10:00 100 MG Ergocalciferol 50,000 unit Q7D PO 04/23/25 15:45 04/23/25 17:22 50,000 UNIT Ergocalciferol 50,000 unit Q7D PO 04/23/25 22:45 UNV laboratory and microbiology Laboratory Tests 04/23/25 04:47 Test 04/23/25 04:47 Range/Units Serum Glucose 81 74-106 mg/dL Assessment/Plan Patient is a 80-year-old female who presented to the hospital for episode of palpitation which was followed by some chest discomfort. Cardiology is involved for cardiac aspects of care. Patient is known to our practice from outside and before. Last visit to our office was in April 2024. Patient herself is poor historian and does not recall the detailed information about her medications. Information about medication was obtained by calling and communicating with patient's son. Patient does have history of hypertrophic cardiomyopathy/diastolic heart failure and paroxysmal AFib. It seems that the patient does take disopyramide once or twice daily inconsistently. As per son, the patient was in [facility]. Patient does have [employer] ICD. Patient denies any recent episode of shock. Not in acute distress. No JVD. Mucosa is pink and wet. No carotid bruit. No goiter. Lungs are clear to auscultation. Not using accessory muscles of breathing. Cardiac: Regular, no thrill/gallop. Systolic murmur 3/6 in the apex is heard. Abdomen is soft. Bowel sound is positive. There is no gross mass/hepatomegaly. Extremities do not reveal edema. Dorsalis pedis is 2+ bilateral. There is no gross lateralized neurologic deficit. Past medical history includes hypertension, hyperlipidemia, COPD, diastolic heart failure, peripheral neuropathy, dementia, hypertrophic cardiomyopathy, status post ICD ([employer]), paroxysmal A-fib, CVA/TIA, parkinsonism, SVT, old history of CVA, restless leg syndrome, wheelchair-bound, status post left total knee replacement and old history of infection after knee replacement. She also has had appendectomy/tonsillectomy/bilateral tubal ligation. Echocardiogram of June 2022 (performed the office) had revealed ejection fraction more than 70%, hyperdynamic left ventricle, pseudo normal LV filling, moderate to severe MR/TR, consistent with hypertrophic cardiomyopathy and right ventricular systolic pressure of 75 mmHg. Echocardiogram of September 05, 2022 (performed in [facility]) at reported ejection fraction of 60%, severe concentric left ventricular hypertrophy and left atrial enlargement. Echocardiogram on June 27, 2023 revealed severe concentric left ventricular hypertrophy, LVEF of 65 to 70%, increased EDP, hypertrophic cardiomyopathy, dilated left atrium, trace AI, moderate MR (posterior jet), mild to moderate TR, mild pulmonary valve insufficiency and right ventricular systolic pressure of 38 mmHg Echocardiogram of January 24, 2024 (performed in [facility]) had reported ejection fraction of 60%, severe concentric left ventricular hypertrophy, consistent with hypertrophic cardiomyopathy, [id number] MR and left atrial enlargement Echocardiogram of March 25, 2024 had revealed LVEF of 60%, severe concentric left ventricular hypertrophy, consistent with hypertrophic cardiomyopathy, moderate MR/TR and right ventricular systolic pressure of 60 mm Hg Left heart catheterization of September 06, 2022 had revealed nonobstructive coronary artery disease (images reviewed). Creatinine: 1.38 - 1.14 Potassium: 4.2 - 3.6 TSH: 1.82 BNP: 581.97 Troponin (high sensitive): 66 - 69 - 83 UDS: non-revealing Chest x-ray revealed: IMPRESSION: 1. No acute cardiopulmonary disease. EKG revealed atrial fibrillation with RVR Repeat EKG revealed paced rhythm Tele reveals sinus rhythm with occasions of NSVT Echocardiogram revealed: Left ventricle: Severe concentric left ventricular hypertrophy was seen. LVEF was more than 75%. Left ventricular systolic function was hyperdynamic. There was no gross wall motion abnormality. Abnormal relaxation of left ventricle diastolic function was observed. Right ventricle was normal-sized with normal systolic function. Left atrium was significantly dilated. Right atrium was normal-sized. Pacing wire was seen in right-sided chambers. Aortic valve: Aortic valve was trileaflet. There was no aortic stenosis. Mild aortic insufficiency was sitting. Mild mitral regurgitation was seen. Mild tricuspid regurgitation was seen. Mild pulmonary valve insufficiency was seen. Right ventricular systolic pressure was assessed at 30 mm Hg. There was no pericardial effusion. IVC was normal-sized with normal respiratory variation. Patient is a 80-year-old female who presented with palpitation which was followed with some chest discomfort. She was found to have atrial fibrillation with RVR. Does have baseline history of hypertrophic cardiomyopathy with history of paroxysmal AFib. As outpatient, the patient is kept on disopyramide and Eliquis. It seems that patient was taking disopyramide not consistently which could have contributed to the clinical picture. Last visit by us in the office was April 2024. Does have [employer] ICD. Recognizing history of paroxysmal AFib and comorbidities, CHADS-VASc score is elevated and long-term full anticoagulation is advised (patient is usually kept on Eliquis as outpatient). Minimally flat and elevated troponin in a patient with hypertrophic cardiomyopathy, most likely represents demand ischemia. Recognizing the findings of left heart catheterization of 2022, repeat ischemic workup is not indicated at this point. Atrial fibrillation with RVR Palpitation Chest pain, atypical Hypertrophic cardiomyopathy Paroxysmal A-fib Tachyarrhythmia Diastolic heart failure Hypertension Hyperlipidemia Old history of CVA Presence of ICD ([employer]) Cardiac suggestion for management: Manage on telemetry Follow-up electrolytes and kidney function test. Keep potassium above 4 and magnesium above 2 Long-term full anticoagulation is advised. On Eliquis as outpatient Disopyramide: 100 mg twice daily is advised at this point. You can hold/stop amiodarone Awaiting Interrogation of ICD ([employer]) Avoid vasodilators Further evaluation and management depends on the above and clinical course A total of 75 minutes was spent reviewing the patient record, examining the patient, making a diagnostic and therapeutic plan, discussing this plan with medical personnel, following up on diagnostic studies and following the patient for clinical stability excluding any and all procedures. At least 50% of this time was spent in direct, [id number] contact. Thank you for allowing me to participate in this patient's care. Further recommendations will depend on patient's clinical course. Please do not hesitate to contact me if you have any questions or concerns. This medical document was created using electronic medical record system with [employer] computerized dictation system. Although this document has been carefully reviewed, there may still be some phonetic and typographical errors. These areas are purely typographical due to the imperfection of the software programs, and do not reflect any compromise in the patient's medical care. Plan discussed with: Patient, Other (nurse) MARIA ESTHER NASH MD Apr 24, 2025 08:03
[2025-04-24 09:00] VITALS: BP 134/78; PULSE 61; RESP 16; TEMP 98; O2SAT 98
--- NOTE | 2025-04-24 09:54 | ECG ---
[facility] Test Date: 2025-04-22 Test Time: 13:53:57 Pat Name: DELIA TRUONG Department: ED Room: 0281T Gender: F Professor Of Biostatistics: CORINA : 1945 Requested By: LAUREN MEYERS Order Number: [id number] Reading MD: Measurements Intervals [place] Rate: 123 P: 0 OK: 0 QRS: -5 QRSD: 121 T: 165 QT: 384 QTc: 550 Interpretive Statements Atrial fibrillation Left bundle branch block Baseline wander in lead(s) III,V1 Please click the below link to view image of tracing.
[2025-04-24 13:01] VITALS: BP 150/92; PULSE 60; RESP 16; TEMP 98.4; O2SAT 97
[2025-04-24 14:21] VITALS: BP 134/78; PULSE 61; RESP 16; TEMP 36.9; O2SAT 97
--- NOTE | 2025-04-24 15:00 | DVHDSRES ---
Discharge Summary Date of Admission Resident Creating Document: ERICA SANTAMARIA RESIDENT Apr 22, 2025 at 17:23 Date of Discharge: Apr 24, 2025 Admitting Diagnosis Atrial fibrillation with a rapid ventricular rate Labs/Diagnostic Data: Laboratory Results Test 04/23/25 04:47 04/22/25 17:13 04/22/25 17:07 04/22/25 14:28 White Blood Count 3.4 10^3/uL (4.4-10.8) Red Blood Count 3.99 10^6/uL (4.0-5.20) Hemoglobin 11.1 g/dL (12.2-16.2) Hematocrit 34.0 % (36.0-46.0) Mean Corpuscular Volume 85.2 fL (80.0-100.0) Mean Corpuscular Hemoglobin 27.9 pg (28.0-32.0) Mean Corpuscular Hemoglobin Concent 32.7 g/dL (32.0-36.0) Red Cell Distribution Width 12.9 % (11.8-14.3) Platelet Count 144 10^3/uL (140-450) Mean Platelet Volume 9.9 fL (6.9-10.8) Neutrophils (%) (Auto) 47.9 % (37.0-80.0) Lymphocytes (%) (Auto) 40.4 % (10.0-50.0) Monocytes (%) (Auto) 10.3 % (0.0-12.0) Eosinophils (%) (Auto) 0.6 % (0.0-7.0) Basophils (%) (Auto) 0.8 % (0.0-2.0) Neutrophils # (Auto) 1.6 10 ^3/uL (1.6-8.6) Lymphocytes # (Auto) 1.4 10 ^3/uL (0.4-5.4) Monocytes # (Auto) 0.3 10 ^3/uL (0-1.3) Eosinophils # (Auto) 0 10 ^3/uL (0-0.8) Basophils # (Auto) 0 10 ^3/uL (0-0.2) Nucleated Red Blood Cells 0.3 % Prothrombin Time 11.4 sec (9.3-11.8) Prothrombin Time INR 1.08 (0.9-1.15) Activated Partial Thromboplast Time 37.0 SEC (24.5-34.5) Sodium Level 140 mmol/L (136-145) Potassium Level 3.6 mmol/L (3.5-5.1) Chloride Level 105 mmol/L (98-107) Carbon Dioxide Level 24 mmol/L (20-31) Anion Gap 11 (5-15) Blood Urea Nitrogen 17 mg/dL (9-23) Creatinine 1.14 mg/dL (0.550-1.02) Glomerular Filtration Rate Calc 49 mL/min (>90) BUN/Creatinine Ratio 14.9 (10.0-20.0) Serum Glucose 81 mg/dL (74-106) Hemoglobin A1c 5.7 % A1C (<5.7) Calcium Level 8.9 mg/dL (8.7-10.4) Total Bilirubin 0.4 mg/dL (0.2-1.0) Aspartate Amino Transferase (AST) 38 U/L (13-40) Alanine Aminotransferase (ALT) < 9 U/L (7-40) Alkaline Phosphatase 136 U/L (46-116) Total Protein 7.5 g/dL (5.7-8.2) Albumin 3.6 g/dL (3.2-4.8) Vitamin B12 Level 337 pg/mL (211-911) Vitamin D 25-Hydroxy 29.0 ng/mL (30.0-100) Folic Acid 11.13 ng/mL (>5.38) Thyroid Stimulating Hormone (TSH) 1.82 uIU/mL (0.55-4.78) Magnesium Level 2.1 mg/dL (1.6-2.6) Troponin I High Sensitivity 83 ng/L (</=34) Urine Color Colorless (Yellow) Urine Clarity Clear (Clear) Urine pH 6.5 (5.0-9.0) Urine Specific Jackson 1.007 (1.001-1.035) Urine Protein 1+ (Negative) Urine Ketones Negative (Negative) Urine Blood Negative /uL (Negative) Urine Nitrite Negative (Negative) Urine Bilirubin Negative (Negative) Urine Urobilinogen Normal mg/dL (Negative) Urine Leukocyte Esterase Negative /uL (Negative) Urine RBC 1 /hpf (0 - 4) Urine Microscopic WBC 1 /HPF (0-5) Urine Squamous Epithelial Cells Few /hpf (<5) Urine Bacteria None seen /hpf (None Seen) Urine Glucose Normal mg/dL (Normal) Urine Opiates Screen Neg (NEGATIVE) Urine Fentanyl Screen Neg (NEGATIVE) Urine Barbiturates Screen Neg (NEGATIVE) Urine Phencyclidine Screen Neg (NEGATIVE) Urine Amphetamines Screen Neg (NEGATIVE) Urine Benzodiazepines Screen Neg (NEGATIVE) Urine Cocaine Screen Neg (NEGATIVE) Urine Cannabinoids Screen Neg (NEGATIVE) B-Type Natriuretic Peptide 581.97 pg/mL (0-100) Other Laboratory Tests 04/23/25 04:47 Brief Hx & Hospital Course: This is an 80-year-old female with past medical history of hypertension, hyperlipidemia, hypertrophic cardiomyopathy, atrial fibrillation on Eliquis, history of CVA x2, HFpEF, ICD, Parkinson's disease. She developed sudden palpitations at home this morning and called EMS, who found her heart rate in the 140s. In the ED she was found to be in atrial fibrillation with RVR and was started on an amiodarone bolus followed by an infusion. she remained in AF but with ventricular pacing and a controlled rate in the 60s. She denies chest pain, dizziness, or syncope. Initial lab workup revealed leukopenia with a WBC 3.4, mild anemia with a hemoglobin 11.8, creatinine 1.38, mildly elevated troponin 66> 69> 83 consistent with NSTEMI type 2, and BNP 581 suggesting mild acute heart failure physiology. Troponin elevation attributed to demand in the setting of AFib with RVR. At the ER patient had infusion of amiodarone followed by oral amiodarone.Patient was seen by Cardiology, recommended to discontinued amiodarone, ordered disopyramide 100 mg p.o. b.i.d. restarted patients on home Eliquis 5 mg p.o. b.i.d. patient was back to sinus rhythm. Echo 2D revealed Severe concentric left ventricular hypertrophy was seen. LVEF was more than 75%. Patient is being discharged home in hemodynamically stable condition. Patient was advised to resume home medications. Patient was also advised to follow up with DC clinic/PCP/Cardiology. All questions answered. General examination- not in acute distress HEENT- PEERLA, no acute nasal discharge Cardiovascular- S1-S2 audible, rate and rhythm regular, systolic murmur Respiratory- CTAB, no wheeze or rhonchi Gastrointestinal-nontender, bowel sound+. Nondistended Musculoskeletal-no acute joint swelling or tenderness or redness Lower extremity- no leg edema Neurological- cranial nerves intact, no acute dysarthria or dysphagia Psychiatry- denies depression or SI or HI Skin- no acute rash or purpura Plan of care discussed with Dr. Cooley Consults/Reason for consult Patient: DELIA TRUONG Acct: [id number] : 1945 Loc: [facility] Age/Sex: 80/F [id number] Progress Note - Dictate Date Seen: Apr 24, 2025 Medical Necessity Reason Pt with a Central, PICC or Fol: No vital signs Vital Sign Date Time Temp Pulse Resp B/P (MAP) Pulse Ox O2 Delivery O2 Flow Rate FiO2 04/24/25 05:00 97.9 60 17 137/61 (86) 97 97.9 04/23/25 20:00 Room Air* 0 21 Total Intake and Output 04/23/25 04/23/25 04/24/25 15:00 23:00 07:00 Intake Total 575 ml 600 ml Balance 575 ml 600 ml medications Current Medications Medications Dose Ordered Sig/Nirmala Route Start Time Stop Time Status Last Admin Dose Admin Carbidopa/Levodopa 1 tab BID PO 04/22/25 22:00 04/23/25 21:33 1 TAB Clopidogrel Bisulfate 75 mg DAILY PO 04/23/25 10:00 04/23/25 10:01 75 MG Atorvastatin Calcium 20 mg HS PO 04/22/25 22:00 04/23/25 21:33 20 MG Metoprolol Succinate 25 mg DAILY PO 04/23/25 10:00 04/23/25 10:01 25 MG Pantoprazole Sodium 40 mg DAILY@0600 PO 04/23/25 07:45 04/24/25 05:44 40 MG Apixaban 2.5 mg BID PO 04/23/25 22:00 04/23/25 21:33 2.5 MG Patient Own Medication 100 mg DAILY PO 04/23/25 10:00 04/23/25 10:00 100 MG Ergocalciferol 50,000 unit Q7D PO 04/23/25 15:45 04/23/25 17:22 50,000 UNIT Ergocalciferol 50,000 unit Q7D PO 04/23/25 22:45 UNV laboratory and microbiology Laboratory Tests 04/23/25 04:47 Test 04/23/25 04:47 Range/Units Serum Glucose 81 74-106 mg/dL Assessment/Plan Patient is a 80-year-old female who presented to the hospital for episode of palpitation which was followed by some chest discomfort. Cardiology is involved for cardiac aspects of care. Patient is known to our practice from outside and before. Last visit to our office was in April 2024. Patient herself is poor historian and does not recall the detailed information about her medications. Information about medication was obtained by calling and communicating with patient's son. Patient does have history of hypertrophic cardiomyopathy/diastolic heart failure and paroxysmal AFib. It seems that the patient does take disopyramide once or twice daily inconsistently. As per son, the patient was in [facility]. Patient does have [employer] ICD. Patient denies any recent episode of shock. Not in acute distress. No JVD. Mucosa is pink and wet. No carotid bruit. No goiter. Lungs are clear to auscultation. Not using accessory muscles of breathing. Cardiac: Regular, no thrill/gallop. Systolic murmur 3/6 in the apex is heard. Abdomen is soft. Bowel sound is positive. There is no gross mass/hepatomegaly. Extremities do not reveal edema. Dorsalis pedis is 2+ bilateral. There is no gross lateralized neurologic deficit. Past medical history includes hypertension, hyperlipidemia, COPD, diastolic heart failure, peripheral neuropathy, dementia, hypertrophic cardiomyopathy, status post ICD ([employer]), paroxysmal A-fib, CVA/TIA, parkinsonism, SVT, old history of CVA, restless leg syndrome, wheelchair-bound, status post left total knee replacement and old history of infection after knee replacement. She also has had appendectomy/tonsillectomy/bilateral tubal ligation. Echocardiogram of June 2022 (performed the office) had revealed ejection fraction more than 70%, hyperdynamic left ventricle, pseudo normal LV filling, moderate to severe MR/TR, consistent with hypertrophic cardiomyopathy and right ventricular systolic pressure of 75 mmHg. Echocardiogram of September 05, 2022 (performed in [facility]) at reported ejection fraction of 60%, severe concentric left ventricular hypertrophy and left atrial enlargement. Echocardiogram on June 27, 2023 revealed severe concentric left ventricular hypertrophy, LVEF of 65 to 70%, increased EDP, hypertrophic cardiomyopathy, dilated left atrium, trace AI, moderate MR (posterior jet), mild to moderate TR, mild pulmonary valve insufficiency and right ventricular systolic pressure of 38 mmHg Echocardiogram of January 24, 2024 (performed in [facility]) had reported ejection fraction of 60%, severe concentric left ventricular hypertrophy, consistent with hypertrophic cardiomyopathy, [id number] MR and left atrial enlargement Echocardiogram of March 25, 2024 had revealed LVEF of 60%, severe concentric left ventricular hypertrophy, consistent with hypertrophic cardiomyopathy, moderate MR/TR and right ventricular systolic pressure of 60 mm Hg Left heart catheterization of September 06, 2022 had revealed nonobstructive coronary artery disease (images reviewed). Creatinine: 1.38 - 1.14 Potassium: 4.2 - 3.6 TSH: 1.82 BNP: 581.97 Troponin (high sensitive): 66 - 69 - 83 UDS: non-revealing Chest x-ray revealed: IMPRESSION: 1. No acute cardiopulmonary disease. EKG revealed atrial fibrillation with RVR Repeat EKG revealed paced rhythm Tele reveals sinus rhythm with occasions of NSVT Echocardiogram revealed: Left ventricle: Severe concentric left ventricular hypertrophy was seen. LVEF was more than 75%. Left ventricular systolic function was hyperdynamic. There was no gross wall motion abnormality. Abnormal relaxation of left ventricle diastolic function was observed. Right ventricle was normal-sized with normal systolic function. Left atrium was significantly dilated. Right atrium was normal-sized. Pacing wire was seen in right-sided chambers. Aortic valve: Aortic valve was trileaflet. There was no aortic stenosis. Mild aortic insufficiency was sitting. Mild mitral regurgitation was seen. Mild tricuspid regurgitation was seen. Mild pulmonary valve insufficiency was seen. Right ventricular systolic pressure was assessed at 30 mm Hg. There was no pericardial effusion. IVC was normal-sized with normal respiratory variation. Patient is a 80-year-old female who presented with palpitation which was followed with some chest discomfort. She was found to have atrial fibrillation with RVR. Does have baseline history of hypertrophic cardiomyopathy with history of paroxysmal AFib. As outpatient, the patient is kept on disopyramide and Eliquis. It seems that patient was taking disopyramide not consistently which could have contributed to the clinical picture. Last visit by us in the office was April 2024. Does have [employer] ICD. Recognizing history of paroxysmal AFib and comorbidities, CHADS-VASc score is elevated and long-term full anticoagulation is advised (patient is usually kept on Eliquis as outpatient). Minimally flat and elevated troponin in a patient with hypertrophic cardiomyopathy, most likely represents demand ischemia. Recognizing the findings of left heart catheterization of 2022, repeat ischemic workup is not indicated at this point. Atrial fibrillation with RVR Palpitation Chest pain, atypical Hypertrophic cardiomyopathy Paroxysmal A-fib Tachyarrhythmia Diastolic heart failure Hypertension Hyperlipidemia Old history of CVA Presence of ICD ([employer]) Cardiac suggestion for management: Manage on telemetry Follow-up electrolytes and kidney function test. Keep potassium above 4 and magnesium above 2 Long-term full anticoagulation is advised. On Eliquis as outpatient Disopyramide: 100 mg twice daily is advised at this point. You can hold/stop amiodarone Awaiting Interrogation of ICD ([employer]) Avoid vasodilators Further evaluation and management depends on the above and clinical course A total of 75 minutes was spent reviewing the patient record, examining the patient, making a diagnostic and therapeutic plan, discussing this plan with medical personnel, following up on diagnostic studies and following the patient for clinical stability excluding any and all procedures. At least 50% of this time was spent in direct, [id number] contact. Thank you for allowing me to participate in this patient's care. Further recommendations will depend on patient's clinical course. Please do not hesitate to contact me if you have any questions or concerns. This medical document was created using electronic medical record system with [employer] computerized dictation system. Although this document has been carefully reviewed, there may still be some phonetic and typographical errors. These areas are purely typographical due to the imperfection of the software programs, and do not reflect any compromise in the patient's medical care. Plan discussed with: Patient, Other (nurse) MARIA ESTHER NASH MD Apr 24, 2025 08:03 E/M VISIT PERFORMED BY: TRANSCRIBED BY:MARIA ESTHER NASH MD TRANSCRIBED DATE/TIME:04/24/25 0803 ELECTRONICALLY SIGNED BY:MARIA ESTHER NASH MD 04/24/25 0932 ELECTRONICALLY CO-SIGNED BY: Patient Name: DELIA TRUONG Acct: [id number] Room: [facility] /Bed: B Attending Physician: DOMINGA BRODY RESIDENT Loc: [facility] Unit: [id number] CONSULTATION REPORT . ................................................................................ ............................................................................... Date of service: Apr 23, 2025 History of Present Illness HPI Patient is a 80-year-old female who presented to the hospital for episode of palpitation which was followed by some chest discomfort. Cardiology is involved for cardiac aspects of care. Patient is known to our practice from outside and before. Last visit to our office was in April 2024. Patient herself is poor historian and does not recall the detailed information about her medications. Information about medication was obtained by calling and communicating with patient's son. It seems that the patient does take disopyramide once or twice daily inconsistently. As per son, the patient was in [facility]. Patient does have [facility] ICD. Patient denies any recent episode of shock. Home Meds Active Scripts Amiodarone HCl (Amiodarone HCl) 200 Mg Tab, 200 MG PO Q12HR, #60 TAB Prov:KALEB BERTRAND MD 01/24/24 Metoprolol Tartrate (Lopressor) 25 Mg Tb, 25 MG PO BID, #60 TAB Prov:JD BERTRAND MD 09/09/23 Apixaban Base (ELIQUIS) 2.5 Mg Tab, 2.5 MG PO BID, #60 TAB Prov:KALEB BERTRAND MD 06/27/23 Reported Medications Melatonin (KP MELATONIN) 3 Mg Tab, 1 TAB PO QPM, #30 TAB 04/23/25 Tramadol Hcl (Tramadol Hcl) 50 Mg Tab, 50 MG PO PRN for pain, TAB 04/23/25 Clopidogrel Bisulfate (Plavix) 75 Mg Tab, 75 MG PO DAILY, TAB 04/23/25 Apixaban Base (ELIQUIS) 5 Mg Tab, 5 MG PO DAILY, TAB 04/23/25 Disopyramide Phosphate (Disopyramide Phosphate) 100 Mg Cap, 100 MG PO DAILY, CAP 04/23/25 Amlodipine Besylate (Amlodipine Besylate) 5 Mg Tab, 1 TAB PO DAILY 08/18/23 Omeprazole (Gnp Omeprazole) 20 Mg Tab, 1 TAB PO DAILY, #90 TAB 1 Refill 03/25/18 Atorvastatin Calcium (ATORVASTATIN CALCIUM) 20 Mg Tab, 1 TAB PO DAILY, #30 TAB 5 Refills 03/25/18 Levodopa W/Carbidopa (Sinemet) 25 /100 Tab, 1 TAB PO BID for 30 Days, #60 TAB 03/25/18 Gabapentin (Gabapentin) 600 Mg Tab, 600 MG PO QID for 30 Days, MG 03/25/18 Past Medical History Others Past medical history includes hypertension, hyperlipidemia, COPD, diastolic heart failure, peripheral neuropathy, dementia, hypertrophic cardiomyopathy, status post ICD ([employer]), paroxysmal A-fib, CVA/TIA, parkinsonism, SVT, old history of CVA, restless leg syndrome, wheelchair-bound, status post left total knee replacement and old history of infection after knee replacement. She also has had appendectomy/tonsillectomy/bilateral tubal ligation. Patient Family History: Cardiovascular disease G8 MOTHER FH: congenital heart problem SON FHx: restless leg syndrome SON SON Hypertension G8 MOTHER Smoker: No Hx (Negative) Alocohol: None Drugs: None Lives with: With family Review of Systems Constitutional: No symptom reported Ears, Nose, & Throat: No symptom reported Cardiovascular: Palpitations All Other Systems 14 point review of system was performed. Relevant findings as per above and as per HPI. Otherwise negative. H&P Exam Vital Signs Vital Signs Date Time Temp Pulse Resp B/P (MAP) Pulse Ox O2 Delivery O2 Flow Rate FiO2 04/23/25 08:00 60 04/23/25 03:11 16 98 Room Air* 0 21 04/23/25 03:11 97.9 141/67 (91) 97.9 General Appeara: Well developed Head Exam: Normal inspection Neck Exam: Normal inspection Eye Exam: bilateral eye PERRL Mouth: Normal Inspection Pulmonary/Respiratory: Lungs clear Cardiovascular/Chest: Regular rate, Systolic murmur Peripheral Pulses: 2+ carotid (R), 2+ carotid (L), 2+ femoral (R), 2+ femoral (L) Abdominal Exam: Normal bowel sounds, Soft Neuro/Mental St: Alert, Oriented Appearance: Appropriate appearance Eye contact/ Speech: Cooperative Labs/Xrays Labs Test 04/23/25 04:47 04/22/25 17:13 04/22/25 17:07 04/22/25 14:28 Range/Units White Blood Count 3.4 L 4.4-10.8 10^3/uL Red Blood Count 3.99 L 4.0-5.20 10^6/uL Hemoglobin 11.1 L 12.2-16.2 g/dL Hematocrit 34.0 L 36.0-46.0 % Mean Corpuscular Volume 85.2 80.0-100.0 fL Mean Corpuscular Hemoglobin 27.9 L 28.0-32.0 pg Mean Corpuscular Hemoglobin Concent 32.7 32.0-36.0 g/dL Red Cell Distribution Width 12.9 11.8-14.3 % Platelet Count 144 140-450 10^3/uL Mean Platelet Volume 9.9 6.9-10.8 fL Neutrophils (%) (Auto) 47.9 37.0-80.0 % Lymphocytes (%) (Auto) 40.4 10.0-50.0 % Monocytes (%) (Auto) 10.3 0.0-12.0 % Eosinophils (%) (Auto) 0.6 0.0-7.0 % Basophils (%) (Auto) 0.8 0.0-2.0 % Neutrophils # (Auto) 1.6 1.6-8.6 10 ^3/uL Lymphocytes # (Auto) 1.4 0.4-5.4 10 ^3/uL Monocytes # (Auto) 0.3 0-1.3 10 ^3/uL Eosinophils # (Auto) 0 0-0.8 10 ^3/uL Basophils # (Auto) 0 0-0.2 10 ^3/uL Nucleated Red Blood Cells 0.3 % Prothrombin Time 11.4 9.3-11.8 sec Prothrombin Time INR 1.08 0.9-1.15 Activated Partial Thromboplast Time 37.0 H 24.5-34.5 SEC Sodium Level 140 136-145 mmol/L Potassium Level 3.6 3.5-5.1 mmol/L Chloride Level 105 98-107 mmol/L Carbon Dioxide Level 24 20-31 mmol/L Anion Gap 11 5-15 Blood Urea Nitrogen 17 9-23 mg/dL Creatinine 1.14 H 0.550-1.02 mg/dL Glomerular Filtration Rate Calc 49 >90 mL/min BUN/Creatinine Ratio 14.9 10.0-20.0 Serum Glucose 81 74-106 mg/dL Calcium Level 8.9 8.7-10.4 mg/dL Total Bilirubin 0.4 0.2-1.0 mg/dL Aspartate Amino Transferase (AST) 38 13-40 U/L Alanine Aminotransferase (ALT) < 9 7-40 U/L Alkaline Phosphatase 136 H 46-116 U/L Total Protein 7.5 5.7-8.2 g/dL Albumin 3.6 3.2-4.8 g/dL Thyroid Stimulating Hormone (TSH) 1.82 0.55-4.78 uIU/mL Magnesium Level 2.1 1.6-2.6 mg/dL Troponin I High Sensitivity 83 *H </=34 ng/L Urine Color Colorless Yellow Urine Clarity Clear Clear Urine pH 6.5 5.0-9.0 Urine Specific Jackson 1.007 1.001-1.035 Urine Protein 1+ H Negative Urine Ketones Negative Negative Urine Blood Negative Negative /uL Urine Nitrite Negative Negative Urine Bilirubin Negative Negative Urine Urobilinogen Normal Negative mg/dL Urine Leukocyte Esterase Negative Negative /uL Urine RBC 1 0 - 4 /hpf Urine Microscopic WBC 1 0-5 /HPF Urine Squamous Epithelial Cells Few <5 /hpf Urine Bacteria None seen None Seen /hpf Urine Glucose Normal Normal mg/dL B-Type Natriuretic Peptide 581.97 0-100 pg/mL Assessment/Plan Plan Patient is a 80-year-old female who presented to the hospital for episode of palpitation which was followed by some chest discomfort. Cardiology is involved for cardiac aspects of care. Patient is known to our practice from outside and before. Last visit to our office was in April 2024. Patient herself is poor historian and does not recall the detailed information about her medications. Information about medication was obtained by calling and communicating with patient's son. Patient does have history of hypertrophic cardiomyopathy/diastolic heart failure and paroxysmal AFib. It seems that the patient does take disopyramide once or twice daily inconsistently. As per son, the patient was in [facility]. Patient does have [employer] ICD. Patient denies any recent episode of shock. Not in acute distress. No JVD. Mucosa is pink and wet. No carotid bruit. No goiter. Lungs are clear to auscultation. Not using accessory muscles of breathing. Cardiac: Regular, no thrill/gallop. Systolic murmur 3/6 in the apex is heard. Abdomen is soft. Bowel sound is positive. There is no gross mass/hepatomegaly. Extremities do not reveal edema. Dorsalis pedis is 2+ bilateral. There is no gross lateralized neurologic deficit. Past medical history includes hypertension, hyperlipidemia, COPD, diastolic heart failure, peripheral neuropathy, dementia, hypertrophic cardiomyopathy, status post ICD ([employer]), paroxysmal A-fib, CVA/TIA, parkinsonism, SVT, old history of CVA, restless leg syndrome, wheelchair-bound, status post left total knee replacement and old history of infection after knee replacement. She also has had appendectomy/tonsillectomy/bilateral tubal ligation. Echocardiogram of June 2022 (performed the office) had revealed ejection fraction more than 70%, hyperdynamic left ventricle, pseudo normal LV filling, moderate to severe MR/TR, consistent with hypertrophic cardiomyopathy and right ventricular systolic pressure of 75 mmHg. Echocardiogram of September 05, 2022 (performed in [facility]) at reported ejection fraction of 60%, severe concentric left ventricular hypertrophy and left atrial enlargement. Echocardiogram on June 27, 2023 revealed severe concentric left ventricular hypertrophy, LVEF of 65 to 70%, increased EDP, hypertrophic cardiomyopathy, dilated left atrium, trace AI, moderate MR (posterior jet), mild to moderate TR, mild pulmonary valve insufficiency and right ventricular systolic pressure of 38 mmHg Echocardiogram of January 24, 2024 (performed in [facility]) had reported ejection fraction of 60%, severe concentric left ventricular hypertrophy, consistent with hypertrophic cardiomyopathy, [id number] MR and left atrial enlargement Echocardiogram of March 25, 2024 had revealed LVEF of 60%, severe concentric left ventricular hypertrophy, consistent with hypertrophic cardiomyopathy, moderate MR/TR and right ventricular systolic pressure of 60 mm Hg Left heart catheterization of September 06, 2022 had revealed nonobstructive coronary artery disease (images reviewed). Creatinine: 1.38 - 1.14 Potassium: 4.2 - 3.6 TSH: 1.82 BNP: 581.97 Troponin (high sensitive): 66 - 69 - 83 Chest x-ray revealed: IMPRESSION: 1. No acute cardiopulmonary disease. EKG revealed atrial fibrillation with RVR Repeat EKG revealed paced rhythm Tele reveals sinus rhythm with occasions of NSVT Patient is a 80-year-old female who presented with palpitation which was followed with some chest discomfort. She was found to have atrial fibrillation with RVR. Does have baseline history of hypertrophic cardiomyopathy with history of paroxysmal AFib. As outpatient, the patient is kept on disopyramide and Eliquis. It seems that patient was taking disopyramide not consistently which could have contributed to the clinical picture. Last visit by us in the office was April 2024. Does have [employer] ICD. Recognizing history of paroxysmal AFib and comorbidities, CHADS-VASc score is elevated and long-term full anticoagulation is advised (patient is usually kept on Eliquis as outpatient). Minimally flat and elevated troponin in a patient with hypertrophic cardiomyopathy, most likely represents demand ischemia. Recognizing the findings of left heart catheterization of 2022, repeat ischemic workup is not indicated at this point. Atrial fibrillation with RVR Palpitation Chest pain, atypical Hypertrophic cardiomyopathy Paroxysmal A-fib Tachyarrhythmia Diastolic heart failure Hypertension Hyperlipidemia Old history of CVA Presence of ICD ([facility]) Cardiac suggestion for management: Manage on telemetry Follow-up electrolytes and kidney function test. Keep potassium above 4 and magnesium above 2 Long-term full anticoagulation is advised. On Eliquis as outpatient Disopyramide: 100 mg twice daily is advised at this point. You can hold/stop amiodarone Echocardiogram Interrogation of ICD ([facility]) is advised Avoid vasodilators Further evaluation and management depends on the above and clinical course A total of 75 minutes was spent reviewing the patient record, examining the patient, making a diagnostic and therapeutic plan, discussing this plan with medical personnel, following up on diagnostic studies and following the patient for clinical stability excluding any and all procedures. At least 50% of this time was spent in direct, [id number] contact. Thank you for allowing me to participate in this patient's care. Further recommendations will depend on patient's clinical course. Please do not hesitate to contact me if you have any questions or concerns. This medical document was created using electronic medical record system with drumbi dictation system. Although this document has been carefully reviewed, there may still be some phonetic and typographical errors. These areas are purely typographical due to the imperfection of the software programs, and do not reflect any compromise in the patient's medical care. Plan discussed with: Patient, Other (nurse) MARIA ESTHER NASH MD Apr 23, 2025 08:59 DICTATED BY:MARIA ESTHER NASH MD DICTATED DATE/TIME:04/23/25 0859 ELECTRONICALLY SIGNED BY:MARIA ESTHER NASH MD 04/23/25858 ELECTRONICALLY CO-SIGNED BY: Operations or Procedures [place] [address] Ph: [phone] DIAGNOSTIC IMAGING Diagnostic Imaging Report : [id number] Signed PATIENT: DELIA TRUONG ACCT: [id number] UNIT: [id number] : 1945 LOC: ER ROOM / BED: / AGE / SEX: 80 / F ADM STATUS: REG ER SERVICE 11 ORDERING PHYSICIAN: LAUREN MEYERS MD PROCEDURE(s): CXRP - CHEST PORTABLE REASON: cp ORDER NUMBER(s): [id number], ACCESSION NUMBER(s): [id number] CHEST RADIOGRAPH INDICATION: cp TECHNIQUE: Single frontal view of the chest was obtained COMPARISON: XY CHEST XRAY 1 VIEW on DOS: 01/07/25, XY CHEST PORTABLE on DOS: 03/24/24, XY CHEST XRAY 1 VIEW on DOS: 01/24/24 FINDINGS: Lines and Tubes: None Lungs: No focal consolidation. Pleura: No effusion. No pneumothorax. Cardiomediastinal contours: Unremarkable Bones: No acute osseous abnormality. IMPRESSION: 1. No acute cardiopulmonary disease. ATED BY: TASNEEM CHOUDHURY Jr., DO DICTATED DATE/TIME: 04/22/25 153 SIGNED BY: TASNEEM CHOUDHURY Jr., SIGNED DATE/TIME: 04/22/25 1532 CC: [address] [address] Ph: [phone] DIAGNOSTIC IMAGING Diagnostic Imaging Report : [id number] Signed PATIENT: DELIA TRUONG ACCT: [id number] UNIT: [id number] : 1945 LOC: [facility] ROOM / BED: 0281T / B AGE / SEX: 80 / F ADM STATUS: ADM IN SERVICE 0731 ORDERING PHYSICIAN: ERICA SANTAMARIA RESIDENT PROCEDURE(s): ECIDC - ECHO 2D MODE CARDIAC DOP REASON: HF/?MS/ ORDER NUMBER(s): [id number], ACCESSION NUMBER(s): [id number] APPROVED REPORT EXAM: Two-dimensional and M-mode echocardiogram with Doppler and color Doppler. Blood Pressure: 141/67 mmHg INDICATION HF/ ?MS RISK FACTORS Height: 60, Weight: 130 DIMENSIONS LVDd 3.5 (3.8-5.7cm) LA (2D) 5.0 (1.9-4.0cm) Aortic Root 3.3 (2.0- 3.7cm) LVDs 2.2 (2.5-4.0cm) LA (MM) (1.9-4.0cm) Aortic Cusp Exc 1.5 (1.5- 2.0cm) EF (%) 70.0 (55-70%) Rt. Atrium 3.6 (1.9-4.0cm) Asc. Aorta cm Mitral Valve Mitral Mitral Stenosis E wave 0.43m/s MV Mean GR. mmHg A wave 0.78m/s MV Peak GR. 113mmHg E/A ratio 0.6 2D MVA cm2 DECEL Time 208ms PRESS 1/2 Time ms Aortic Valve Aortic Valve Aortic Stenosis V1 1.40m/s AO Mean GR. 4mmHg V2 1.55m/s AO Peak GR. 10mmHg LVOT Diameter 1.2 (1.8-2.4cm) Doppler KATHY 1.02cm2 AI P 1/2 Time 739.93ms Pulmonic Valve V2 1.25m/s Tricuspid Valve TR Velocity 2.44m/s RVSP 29mmHg Conclusion Left ventricle: Severe concentric left ventricular hypertrophy was seen. LVEF was more than 75%. Left ventricular systolic function was hyperdynamic. There was no gross wall motion abnormality. Abnormal relaxation of left ventricle diastolic function was observed. Right ventricle was normal-sized with normal systolic function. Left atrium was significantly dilated. Right atrium was normal-sized. Pacing wire was seen in right-sided chambers. Aortic valve: Aortic valve was trileaflet. There was no aortic stenosis. Mild aortic insufficiency was sitting. Mild mitral regurgitation was seen. Mild tricuspid regurgitation was seen. Mild pulmonary valve insufficiency was seen. Right ventricular systolic pressure was assessed at 30 mm Hg. There was no pericardial effusion. IVC was normal-sized with normal respiratory variation. 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 #NSTEMI type 2 likely due to demand lead ischemia #Chronic kidney disease #Parkinson disease #Hypertension # vitamin-D deficiency Discharge Disposition: Home Discharge Instruct/Medications Diet: Consistent carbohydrate, Cardiac 2g Na,low cholest, Renal Diet comment: Consistent Carbohydrate and cardiac 2g Na Low cholesterol Activity: Light activity Follow Up/Referral: DC clinic PCP Cardiology Medications: As above Scheduled Amiodarone HCl (Amiodarone HCl), 200 MG PO Q12HR Amlodipine Besylate (Amlodipine Besylate), 1 TAB PO DAILY, (Reported) Apixaban Base (Eliquis), 2.5 MG PO BID Apixaban Base (Eliquis), 5 MG PO DAILY, (Reported) Atorvastatin Calcium (Atorvastatin Calcium), 1 TAB PO DAILY, (Reported) Clopidogrel Bisulfate (Plavix), 75 MG PO DAILY, (Reported) Disopyramide Phosphate (Disopyramide Phosphate), 100 MG PO DAILY, (Reported) Gabapentin (Gabapentin), 600 MG PO QID, (Reported) Levodopa W/Carbidopa (Sinemet), 1 TAB PO BID, (Reported) Melatonin (Kp Melatonin), 1 TAB PO QPM, (Reported) Metoprolol Tartrate (Lopressor), 25 MG PO BID Omeprazole (Gnp Omeprazole), 1 TAB PO DAILY, (Reported) Tramadol Hcl (Tramadol Hcl), 50 MG PO PRN, (Reported) Discharge Statement: "Patient was advised to return to the ER or call 911 if any headaches, dizziness, shortness of breath, chest pain, abdominal pain, bleeding, fevers, or worsening of medical condition. Patient was counseled about treatment plan, medications, possible side effects, patientverbalized understanding. All questions were answered to the best of my ability. This discharge took greater then 30 minutes in planning, reviewing documentation, counseling the patient, and discussing with other team members." ASSESSMENT ASSESSMENT Assessment Atrial fibrillation with rapid ventricular rate Visit Coding STANDARD RES Billing Provider: OKSANA COOLEY MD Date of Service if different f: Apr 24, 2025 Common Visit Codes: 89743-KYF/OBS DISCH DAY >30min ERICA SANTAMARIA RESIDENT Apr 24, 2025 15:00
== END 2025-04-24 15:45 | disposition home or self-care (01) | DRG 280 ==
LOC: EDBD 13:50 → ER 13:50 → OVERFLOW 17:23 → TELE-WESTW 04-23 03:11
PROVIDERS: ADMIT Internal Medicine Geriatric Medicine; ATTEND Internal Medicine Geriatric Medicine
PROC: 4B02XSZ Measurement of Cardiac Pacemaker, External Approach (ICD-10-PCS; principal; 2025-04-24)
DX: I48.0 Paroxysmal atrial fibrillation (principal); I50.33 Acute on chronic diastolic (congestive) heart failure; I21.A1 Myocardial infarction type 2; N17.0 Acute kidney failure with tubular necrosis; I13.0 Hypertensive heart and chronic kidney disease with heart failure and stage 1 through stage 4 chronic kidney disease, or unspecified chronic kidney disease; G20.A1 Parkinson's disease without dyskinesia, without mention of fluctuations; Z79.01 Long term (current) use of anticoagulants; Z79.02 Long term (current) use of antithrombotics/antiplatelets; J44.9 Chronic obstructive pulmonary disease, unspecified; F02.80 Dementia in other diseases classified elsewhere, unspecified severity, without behavioral disturbance, psychotic disturbance, mood disturbance, and anxiety; I37.1 Nonrheumatic pulmonary valve insufficiency; N18.31 Chronic kidney disease, stage 3a; I42.2 Other hypertrophic cardiomyopathy; E55.9 Vitamin D deficiency, unspecified; G62.9 Polyneuropathy, unspecified; Z96.652 Presence of left artificial knee joint; E78.5 Hyperlipidemia, unspecified; I25.10 Atherosclerotic heart disease of native coronary artery without angina pectoris; Z88.0 Allergy status to penicillin; Z88.5 Allergy status to narcotic agent; Z88.6 Allergy status to analgesic agent; Z90.49 Acquired absence of other specified parts of digestive tract; Z86.73 Personal history of transient ischemic attack (TIA), and cerebral infarction without residual deficits; I25.2 Old myocardial infarction; Z79.899 Other long term (current) drug therapy; Z82.49 Family history of ischemic heart disease and other diseases of the circulatory system; Z87.891 Personal history of nicotine dependence; Z95.810 Presence of automatic (implantable) cardiac defibrillator
CPT/HCPCS: 36415; 71045; 80048; 80053; 80307; 81001; 82306; 82607; 82746; 83036; 83735; 83880; 84443; 84484; 85025; 85610; 85730; 93005; 93306; 99291; G0378